=== PATIENT | female | born 1940 | race Caucasian/White ===

== ENCOUNTER → 2017-03-18 | Outpatient (CLI) | payer BC ==
[~2017-03-18] MED LIST: ASPEC81 PO; CAND32TA2 PO; DIPH25CA5 PO; EZET10TA47 PO; HYDR12.55 PO; LEVO50TA6 PO; METO-452 PO; PANT40TA PO; PRM/45 PO; PSEU30TA20 PO
--- NOTE | 2017-03-18 16:01 | MAMMOGRAPHY REPORT ---
BILATERAL DIGITAL SCREENING MAMMOGRAM WITH CAD: 03/18/2017 CLINICAL HISTORY: Asymptomatic. Personal history of breast cancer. TECHNIQUE: Bilateral CC, MLO and repeat left MLO views were obtained. Current study was also evaluat ed with a Computer Aided Detection (CAD) system. COMPARISON: Comparison is made to exams dated: 03/14/2016 mammogram, 03/09/2015 mammogram, 01/26/2014 ma mmogram, 01/20/2013 mammogram, 01/07/2013 mammogram, and 12/31/2011 mammogram - [facility]. BREAST COMPOSITION: There are scattered areas of fibroglandular density in both breasts. FINDINGS: A linear scar marker overlies the upper outer posterior left breast, denoting an area of pr ior surgery. [address]. There are mild vascular calcifications in the breast . Scattered stable benign calcifications and rodlike, probable secretory microcalcifications. No ryan spicious mass, architectural distortion or cluster of new, suspicious microcalcifications is seen. IMPRESSION: ACR BI-RADS CATEGORY 1: NEGATIVE There is no mammographic evidence of malignancy. A 1 year screening mammogram is recommended. The pa tient will receive written notification of the results. Approximately 10% of breast cancers are not detected with mammography. A negative mammographic report should not delay biopsy if a clinically suggestive mass is present. Tiarra Rios M.D. ay/:03/18/2017 15:18:39 [employer] Supervisor: Lyn POLANCO(Jose Eduardo)(Khoi)([place]), [facility] letter sent: Normal 1/2 BI-RADS Code: ACR BI-RADS Category 1: Negative
== END | disposition home or self-care (01) ==
LOC: C.MAMM 11:31
PROVIDERS: ATTEND Family Medicine
DX: Z12.31 Encounter for screening mammogram for malignant neoplasm of breast (principal); R05 Cough

== ENCOUNTER → 2017-03-18 | Outpatient (CLI) | payer BC ==
--- NOTE | 2017-03-18 10:56 | DIAGNOSTIC IMAGING REPORT ---
CHEST 2 VIEWS ROUTINE CLINICAL HISTORY: R05 COUGH COMPARISON STUDY: No previous studies for comparison. FINDINGS: The heart is at the upper limits of normal in size. There is no failure. There is no focal pulmonary consolidation. There are no pleural effusions. There is suspected mild ectasia of the a sitting thoracic aorta.[ IMPRESSION: No active disease in the chest. Electronically signed by: Milan Hatfield M.D. 03/18/2017 10:55 AM Dictated Date/Time: 03/18/2017 10:54 AM
== END | disposition home or self-care (01) ==
LOC: C.RAD1850 10:16
PROVIDERS: ATTEND Family Medicine
DX: R05 Cough (principal)

== ENCOUNTER → 2017-03-19 | Outpatient (CLI) | payer BC ==
[2017-03-25 14:19] LABS: QUANTIF TB AG-NIL 0.04 IU/ML; QUANTIFERON NIL 0.03 IU/ML
== END | disposition home or self-care (01) ==
LOC: C.LABSPEC 12:30
PROVIDERS: ATTEND Family Medicine
DX: R05 Cough (principal); R61 Generalized hyperhidrosis

== ENCOUNTER → 2017-05-06 | Outpatient (CLI) | payer BC ==
[~2017-05-06] MED LIST changes: +BND25 PO; -DIPH25CA5 PO; -METO-452 PO; +METO1TAB66 PO
== END | disposition home or self-care (01) ==
LOC: C.MAMM 11:15
PROVIDERS: ATTEND Family Medicine
DX: M81.0 Age-related osteoporosis without current pathological fracture (principal)

== ENCOUNTER → 2017-05-17 | Outpatient (CLI) | payer BC ==
--- NOTE | 2017-05-17 17:39 | DIAGNOSTIC IMAGING REPORT ---
MRI THE LEFT HIP NO CONTRAST CLINICAL HISTORY: L HIP ABDUCTORS TENDONITIS left hip pain COMPARISON STUDY: Conventional radiographic study dated 06/19/2016 FINDINGS: Imaging was performed in the axial coronal and oblique sagittal planes. There are no areas of marrow edema to indicate occult fracture, bone bruise, or neoplasm. There are tubular defects in the region of the greater trochanter the left hip, possibly related to prior surgery. There is minimal edema within the left piriformis and gluteus medius insertions consistent with a mild tendinopathy. There is no evidence of pathologic joint effusion. There is no evidence of avascular necrosis. There is no pathologic adenopathy. IMPRESSION: 1. No evidence of occult fracture 2. No evidence of avascular necrosis 3. Minimal edema within the left piriformis and gluteus medius insertions consistent with a mild tendinopathy Electronically signed by: Milan Hatfield M.D. 05/17/2017 5:38 PM Dictated Date/Time: 05/17/2017 5:26 PM
== END | disposition home or self-care (01) ==
LOC: C.MRIBC 15:44
PROVIDERS: ATTEND Physical Medicine & Rehabilitation Sports Medicine
DX: M76.892 Other specified enthesopathies of left lower limb, excluding foot (principal)

== ENCOUNTER → 2017-09-23 | Outpatient (CLI) | payer BC ==
[~2017-09-23] MED LIST changes: -BND25 PO; +DIPH25CA5 PO; +METO-452 PO; -METO1TAB66 PO
== END | disposition home or self-care (01) ==
LOC: C.RDSM 12:33
PROVIDERS: ATTEND Physical Medicine & Rehabilitation Sports Medicine
DX: M17.0 Bilateral primary osteoarthritis of knee (principal)

== ENCOUNTER → 2017-12-30 | Outpatient (CLI) | payer BC ==
[~2017-12-30] MED LIST changes: +ASPCH81X PO; +METO50TA8 PO; +RANI150T85 PO
--- NOTE | 2017-12-30 11:12 | DIAGNOSTIC IMAGING REPORT ---
L PELVIS UNILATERAL HIP 1 VIEW CLINICAL HISTORY: 77 years-old Female presenting with LEFT HIP PAIN. TECHNIQUE: Single frontal view the pelvis and frog-leg lateral view of the left hip were obtained. COMPARISON: 06/19/2016. FINDINGS: Sacroiliac joints, pubic symphysis, and hip joints congruent. Mild degenerative changes of the bilateral hip joint suggested though joint spaces preserved. This appearance is unchanged since 2016. Chondrocalcinosis at the pubic symphysis and potentially also at the left hip joint. Bony pelvis intact. Femoral necks intact. IMPRESSION: 1. Findings suggest mild degenerative change with chondrocalcinosis in the left hip joint. These findings are unchanged since prior exam. 2. No acute osseous injury. Electronically signed by: Quang Clark M.D. 12/30/2017 11:11 AM Dictated Date/Time: 12/30/2017 11:10 AM
== END | disposition home or self-care (01) ==
LOC: C.RDSM 19:19
PROVIDERS: ATTEND Physician Assistant
DX: M25.552 Pain in left hip (principal)

== ENCOUNTER → 2018-01-02 | Day surgery (SDC) | payer BC ==
[2018-01-01 13:41] VITALS: Ht 165.1 cm; Wt 75.0 kg
[~2018-01-02] VITALS: Ht 165.1 cm; Wt 75.0 kg
[~2018-01-02] MED LIST changes: -ASPEC81 PO; +BUPIVACAINE 0.25% 2.5MG/ML PF 10 ML VIAL ONE; -DIPH25CA5 PO; -EZET10TA47 PO; -HYDR12.55 PO; +IOPAMIDOL INJ 61% 15 ML VIAL ONE; +LIDOCAINE HCL 1% MPF 5 ML VIAL ONE; -METO-452 PO; -PANT40TA PO; -PSEU30TA20 PO
--- NOTE | 2018-01-02 15:11 | History & Physical Bridge - SC ---
H&P Re-Evaluation Bridge Note: I have examined the patient, reviewed the History & Physical and in the interval since the performance of the History & Physical I have noted the following changes of clinical significance: No changes noted
--- NOTE | 2018-01-02 15:27 | [facility] Post Operative Brief Note ---
Immediate Operative Summary Operative Date Jan 02, 2018. Pre-Operative Diagnosis Left sacroiliitis; underlying scoliosis Post-Operative Diagnosis same Procedure(s) Performed Left Sacroiliac Joint Injection Surgeon Dr Michael Blackwell Lesson Instructor Surgeon(s) None Estimated Blood Loss 0 Findings Consistent with Post-Op Diagnosis Specimens NA Drains None Anesthesia Type Local Complication(s) none Disposition Disposition:
--- NOTE | 2018-01-02 15:28 | Discharge Instructions ---
Discharge Instructions Date of Service Jan 02, 2018. Visit Reason for Visit: Sacroiliitis, Adolescent Idiopathic Scoliosis Discharge Discharge Diagnosis / Problem: Low back pain Discharge Goals Goal(s): Decrease discomfort, Improve function Activity Recommendations Activity Limitations: resume your previous activity Anesthesia . Post Anesthesia Instructions: If you have had General Anesthesia or IV Sedation: * Do not drive today. * Resume driving when surgeon permits. * Do not make important decisions or sign legal documents today. * Call surgeon for: 1. Temperature elevations greater than 101 degrees F. 2. Uncontrollable pain. 3. Excessive bleeding. 4. Persistent nausea and vomiting. 5. Medication intolerance (nausea, vomiting or rash). * For nausea and vomiting use only clear liquids such as: tea, soda, bouillon until nausea subsides, then gradually increase diet as tolerated. * If you have any concerns or questions, call your surgeon's office. If physician is unavailable and it is an emergency, call 911 or go to the nearest emergency room. . Diet Recommendations Recommended Home Diet: resume previous diet Procedures Procedures Performed: Left Sacroiliac Joint Injection Pending Studies Studies pending at discharge: no Medical Emergencies . Who to Call and When: Medical Emergencies: If at any time you feel your situation is an emergency, please call 911 immediately. . Non-Emergent Contact Non-Emergency issues call your: Specialist . . "Provider Documentation" section prepared by Michael Blackwell. .
[2018-01-02 15:43] VITALS: BP 154/86; PULSE 64; TEMP 36.6; O2SAT 96
--- NOTE | 2018-01-02 16:25 | OPERATIVE REPORT ---
DATE OF OPERATION: 01/02/2018 PREOPERATIVE DIAGNOSES: Left sacroiliitis and underlying scoliosis. POSTOPERATIVE DIAGNOSES: Same. PROCEDURE: Left sacroiliac joint injection under fluoroscopic guidance. INDICATIONS: The patient is a 77-year-old white female who underwent successful sacroiliac joint injections back in 2014. She has done very well until a short time ago when her pain started to increase and escalate. She presents today for injection that has been immensely successful in the past. PHYSICAL EXAMINATION: Pleasant female seated comfortably. She has point tenderness to palpation over the left SI joint. She has a positive modified Monica maneuver. Normal motor and sensory exam. CONSENT: Verbal and written consent was obtained from the patient. Risks and benefits were reviewed. Risks include, but are not limited to abscess and allergic reaction. The patient wishes to proceed. DESCRIPTION OF PROCEDURE: The patient was taken back into the special procedures room of [facility]. She was maintained in a prone position. Backside was cleansed with Betadine x3 and a dry sterile dressing was applied. Fluoroscope was used to identify the left SI joint and the overlying skin was anesthetized with 2.5 mL of lidocaine 1% with a 25-gauge 1-1/2 inch needle. A 25-gauge 3-1/2 inch spinal needle was then directed under fluoroscopic guidance into the joint. Isovue-300 contrast 0.25 mL indicated intra-articular uptake. She then underwent injection after negative aspiration of 40 mg Depo-Medrol and 0.5 mL of bupivacaine. Injection was well tolerated. DISPOSITION: 1. The patient was taken out into the discharge recovery area, where she will be discharged home once discharge criteria are met. 2. Follow up in the [facility] office in 4 weeks' time. I attest to the content of the Intraoperative Record and any orders documented therein. Any exception s are noted below.
== END | disposition home or self-care (01) ==
LOC: X.SURG 14:08
PROVIDERS: ATTEND Physical Medicine & Rehabilitation
DX: M46.1 Sacroiliitis, not elsewhere classified (principal); M41.9 Scoliosis, unspecified; Z79.82 Long term (current) use of aspirin

== ENCOUNTER → 2018-05-12 | Outpatient (CLI) | payer BC ==
[~2018-05-12] MED LIST changes: -BUPIVACAINE 0.25% 2.5MG/ML PF 10 ML VIAL ONE; +CLB/200 PO; +DIPH25CA65 PO; +HYDR12.55 PO; -IOPAMIDOL INJ 61% 15 ML VIAL ONE; -LIDOCAINE HCL 1% MPF 5 ML VIAL ONE; +PANT40TA PO
--- NOTE | 2018-05-12 12:40 | DIAGNOSTIC IMAGING REPORT ---
CHEST 2 VIEWS ROUTINE CLINICAL HISTORY: PAT preoperative evaluation COMPARISON STUDY: 03/18/2017 FINDINGS: The bones soft tissues and hemidiaphragms are normal. The cardiomediastinal silhouette is normal. The lungs are clear. The pulmonary vasculature is normal. IMPRESSION: Negative chest. The above report was generated using voice recognition software. It may contain grammatical, syntax or spelling errors. Electronically signed by: Inocencio Campos M.D. 05/12/2018 12:38 PM Dictated Date/Time: 05/12/2018 12:38 PM
[2018-05-12 12:44] LABS: BASO % 0.2 %; BASO ABS # 0.01 K/uL (0-0.2); EOS % 1.5 %; EOS ABS # 0.07 K/uL (0-0.5); HEMATOCRIT 40.8 % (37-47); HEMOGLOBIN 13.4 g/dL (12.0-16.0); IG# 0.02 K/uL (0.00-0.02); LYMPH ABS # 1.62 K/uL (1.2-3.4); MEAN CELL VOLUME 91.3 fL (80-100); MEAN CORPUSCULAR HGB CONC 32.8 g/dl (32-36); MEAN PLATELET VOLUME 9.8 fL (7.4-10.4); MONO % 6.7 %; MONO ABS # 0.31 K/uL (0.11-0.59); NEUT % 56.2 %; PLATELET COUNT 217 K/uL (130-400); RED CELL DISTRIBUTION WIDTH CV 12.7 % (11.5-14.5); RED CELL DISTRIBUTION WIDTH SD 42.5 fL (36.4-46.3); WHITE BLOOD COUNT 4.63 K/uL (4.8-10.8)
[2018-05-12 12:55] LABS: PTT PATIENT 25.7 SECONDS (21.0-31.0)
[2018-05-12 12:58] LABS: BLOOD UREA NITROGEN 14 mg/dl (7-18); CALCIUM 9.3 mg/dl (8.5-10.1); CARBON DIOXIDE 28 mmol/L (21-32); CREATININE 0.87 mg/dl (0.60-1.20); GLUCOSE 85 mg/dl (70-99); POTASSIUM 4.2 mmol/L (3.5-5.1); SODIUM 138 mmol/L (136-145)
== END | disposition home or self-care (01) ==
LOC: C.RAD 11:30
PROVIDERS: ATTEND Physical Medicine & Rehabilitation Sports Medicine
DX: Z01.818 Encounter for other preprocedural examination (principal); M17.11 Unilateral primary osteoarthritis, right knee

== ENCOUNTER → 2018-05-14 | Outpatient (CLI) | payer BC | END | disposition home or self-care (01) | LOC: C.RDSM 11:45 | PROVIDERS: ATTEND Physical Medicine & Rehabilitation Sports Medicine | DX: M25.561 Pain in right knee (principal); M25.562 Pain in left knee ==

== ENCOUNTER 2018-05-28 05:11 | Inpatient (IN) | payer BC, OTHER ==
[2018-05-05 10:10] VITALS: BMI 27.0
[2018-05-12 11:36] VITALS: BMI 27.0
--- NOTE | 2018-05-12 11:54 | PAT Medication Instructions ---
Service Date May 12, 2018. Current Home Medication List Aspirin (Aspirin Chewable), 81 MG PO QAM Candesartan Cilexetil (Atacand), 32 MG PO QAM Celecoxib (CeleBREX), 200 MG PO QPM Diphenhydramine Hcl (Benadryl Allergy), 1 CAP PO HS PRN for ALLERGY Estrogens, Conjugated (Premarin), 0.45 MG PO QAM Hydrochlorothiazide (Hydrochlorothiazide), 1 TAB PO QAM PRN for EDEMA Levothyroxine Sodium (Levothyroxine Sodium), 1 TAB PO QAM Metoprolol Succ (Toprol Xl) (Toprol-Xl), 50 MG PO QAM Pantoprazole (Protonix), 40 MG PO QAM PRN for PRN Ranitidine (Zantac), 150 MG PO QID PRN for Indigestion Medication Instructions For Your Scheduled Surgery - Hold the following medications 5 days prior to surgery per surgeon: Celecoxib (CeleBREX), 200 MG PO QPM - Hold the following medications the morning of surgery: Candesartan Cilexetil (Atacand), 32 MG PO QAM Estrogens, Conjugated (Premarin), 0.45 MG PO QAM Hydrochlorothiazide (Hydrochlorothiazide), 1 TAB PO QAM PRN for EDEMA - Take the following medications the morning of surgery with a sip of water: Aspirin (Aspirin Chewable), 81 MG PO QAM Levothyroxine Sodium (Levothyroxine Sodium), 1 TAB PO QAM Metoprolol Succ (Toprol Xl) (Toprol-Xl), 50 MG PO QAM Pantoprazole (Protonix), 40 MG PO QAM PRN for PRN (if needed) Ranitidine (Zantac), 150 MG PO QID PRN for Indigestion (if needed) - Take the following medications as scheduled the night before surgery: Diphenhydramine Hcl (Benadryl Allergy), 1 CAP PO HS PRN for ALLERGY (if needed) Hydrochlorothiazide (Hydrochlorothiazide), 1 TAB PO QAM PRN for EDEMA (if needed ) Pantoprazole (Protonix), 40 MG PO QAM PRN for PRN (if needed) Ranitidine (Zantac), 150 MG PO QID PRN for Indigestion (if needed) If you have any questions please call us at [phone] or [phone] or [phone]
--- NOTE | 2018-05-16 19:34 | HISTORY & PHYSICAL EXAMINATION ---
DATE OF ADMISSION: 05/28/2018 CHIEF COMPLAINT: Bilateral knee pain, right side greater than left. HISTORY OF PRESENT ILLNESS: This 78-year-old white female presents with her with complaints of bilateral knee pain, right greater than left, that have been ongoing for several years. Initially, her left knee hurt worst, but it is now her right. She has been through activity modification, cortisone injections, viscosupplementation, oral anti-inflammatories and oral pain medications without lasting relief. Pain is worse with weightbearing. It is affecting her ADLs. She elects to proceed with surgical intervention in hopes of alleviating her pain. Preoperative imaging has been obtained. PAST MEDICAL HISTORY: Significant for hypertension, elevated cholesterol, hypothyroidism, osteoarthritis, low back pain, GERD, hiatal hernia, and obesity. PREVIOUS SURGERIES: Basal joint reconstruction of the wrist, left knee arthroscopy x2, bilateral cataract surgery, tonsillectomy, hemorrhoidectomy, back surgery, rectocele and cystocele repair, breast lumpectomy, sinus surgery, colonoscopy, left hip arthroscopy in 12/2015. SOCIAL HISTORY: The patient is . Retired. No tobacco use. No ETOH use. ALLERGIES: KNOWN ALLERGY TO COZAAR, CRESTOR, NIFEDIPINE, NORVASC, PERCOCET, PRAVACHOL, SULFA DRUGS, ZOCOR. PERCOCET MAKES HER "LOOPY." FAMILY HISTORY: Significant for heart disease, hypertension, leukemia, and stroke. CURRENT MEDICATIONS: Aspirin 81 mg daily, candesartan 32 mg p.o. daily, Celebrex 200 mg p.o. p.r.n., Claritin 10 mg daily, fluticasone nasal spray 50 mcg two sprays in each nostril daily, hydrochlorothiazide 12.5 mg p.o. daily, indomethacin 25 mg p.o. t.i.d. p.r.n. gout, Synthroid 50 mcg p.o. daily, metoprolol 50 mg p.o. daily, Premarin 0.3 mg p.o. daily, ranitidine 150 mg p.o. t.i.d. REVIEW OF SYSTEMS: Significant for above stated conditions, otherwise unremarkable. PHYSICAL EXAMINATION: GENERAL: Well-developed, well-nourished elderly white female, in no acute distress. Sitting in a chair. Alert and oriented. SKIN: Warm and dry with good turgor. No rashes or lesions. No ecchymosis or erythema. No intraarticular effusion. Very kim. HEENT: Normocephalic, atraumatic. Eyes: PERRLA, EOMI. Nares patent bilaterally without turbinate enlargement. Oropharynx without erythema or exudate. No lesions noted. Uvula midline. Oral mucosa moist. Good dentition. Fillings are noted. HEART: RRR. No MGR. LUNGS: Clear to auscultation bilaterally. No crackles, rhonchi or wheezing. Good air movement. ABDOMEN: Bowel sounds present x4, soft, nontender. No organomegaly. No masses. MUSCULOSKELETAL: Right knee evaluation reveals no intraarticular effusion. She has a lack of approximately 3-5 degrees of terminal extension. Flexion to greater than 110 degrees. Stable collateral ligaments. Focal discomfort with palpation over the medial and lateral joint lines. No defect in the patellar tendon or quadriceps tendon. Ambulatory with a slightly antalgic gait. NEUROLOGIC: Gross sensation is intact across both lower extremities by soft touch. Cranial nerves II-XII are intact. DATA: Radiographic imaging previously obtained shows end-stage DJD of the right knee. Periarticular osteophytes, subchondral sclerosis, and joint space narrowing are all present. IMPRESSION: Right knee end-stage degenerative joint disease. PLAN: Informed written consent to proceed with right total knee arthroplasty has already been obtained. Postoperative prescriptions for Percocet and Coumadin will be provided at discharge from the hospital. Anticipate discharge to home with home health services or outpatient PT. She already has a cane and walker. She will obtain medical clearance from her PCP. Preoperative lab work, EKG, and chest x-ray have been ordered.
[2018-05-28] VITALS (9 sets, daily range): BP systolic 128–160; BP diastolic 69–95; PULSE 63–75; TEMP 36.4–36.8; O2SAT 92–97; Ht 165.1 cm; Wt 75.6 kg
[~2018-05-28] VITALS: Ht 165.1 cm; Wt 75.6 kg
[2018-05-28] MEDS ORDERED: TRANEXAMIC ACID INJ 1,000 MG x 1 Bag Preop IV SCH ×2 (06:00)
[2018-05-28] MEDS ORDERED: LACTATED RINGER'S 1000ML 1,000 ML IV SCH (06:00)
[2018-05-28] MEDS ORDERED: CEFAZOLIN 2000MG IV PUSH 15 ML IV SCH (06:00)
[2018-05-28] MEDS ORDERED: LACTATED RINGER'S 1000ML 500 ML IV SCH (06:00)
[2018-05-28] MEDS ORDERED: ROPIVACAINE 5MG/ML 30 ML 150 MG, BUPIVACAINE 0.5% MPF INJ 30 ML, EpINEphrine HCL INJ 0.... INFIL SCH ×8 (06:00)
[2018-05-28] MEDS ORDERED: LACTATED RINGER'S 1000ML IV SCH (06:00)
--- NOTE | 2018-05-28 06:22 | History & Physical Bridge Note ---
H&P Re-Evaluation Bridge Note: I have examined the patient, reviewed the History & Physical and in the interval since the performance of the History & Physical I have noted the following changes of clinical significance:consent reviewed. No changes noted
[2018-05-28] MEDS ORDERED: BUPIVACAINE 0.5 % 5 MG/1 ML PF 10ML VIAL ONE (06:26)
[2018-05-28] MEDS ORDERED: ROPIVACAINE 0.5% 5 MG/ML 30 ML VIAL ONE (06:26)
[2018-05-28] MEDS ORDERED: EpINEphrine INJ 1MG/ML AMP 1 MG/ML AMP ONE (06:27)
[2018-05-28] MEDS ORDERED: ORTHO JOINT ANESTHETIC ONE (06:34)
[2018-05-28] MEDS ORDERED: POVIDONE-IODINE OP SOLN 30 ML BTL ONE (06:34)
[2018-05-28] MEDS ORDERED: MIDAZOLAM HCL 1 MG/ML 2ML VIAL ONE (06:46)
[2018-05-28] MEDS ORDERED: FENTANYL CITRATE INJ 50 MCG/1 ML 2 ML VIAL ONE (07:03)
[2018-05-28] MEDS ORDERED: ONDANSETRON INJ 2 MG/ML 2 ML VIAL ONE (07:42)
[2018-05-28] MEDS ORDERED: DEXAMETHASONE SOD INJ 4 MG/ML VIAL ONE (07:42)
[2018-05-28] MEDS ORDERED: EpHEDrine SULFATE 50MG/5ML SYR ONE (07:42)
[2018-05-28] MEDS ORDERED: PROPOFOL IV EMULSION 10 MG/ML 20 ML VIAL ONE (07:42)
--- NOTE | 2018-05-28 08:14 | [facility] Post Operative Brief Note ---
Immediate Operative Summary Operative Date May 28, 2018. Pre-Operative Diagnosis Right Knee End-Stage Degenerative Joint Disease Post-Operative Diagnosis Right Knee End-Stage Degenerative Joint Disease Procedure(s) Performed Right Total Knee Arthroplasty Surgeon Dr. Wong Eeg Technologist Surgeon(s) HILLARY Luna Estimated Blood Loss 25 ml Findings Consistent with Post-Op Diagnosis Fluids (cc crystalloids) 1500cc Specimens A. Right Knee Bone and Tissue Drains None Anesthesia Type General Regional Complication(s) none Disposition Accompanied Pt To Recover: no Overlapping Procedure I was immediately available: during the entire case
[2018-05-28] MEDS ORDERED: FENTANYL CITRATE INJ 50 MCG/1 ML 2 ML VIAL IV PRN (08:15)
[2018-05-28] MEDS ORDERED: MEPERIDINE HCL 25 MG/ML CARP IV PRN (08:15)
[2018-05-28] MEDS ORDERED: PHENYLEPHRINE 100MCG/ML 5ML SYR IV PRN (08:15)
[2018-05-28] MEDS ORDERED: ONDANSETRON INJ 2 MG/ML 2 ML VIAL IV PRN ×2 (08:15→08:30)
[2018-05-28] MEDS ORDERED: FLUMAZENIL 0.1 MG/1 ML 10 ML VIAL IV PRN (08:15)
[2018-05-28] MEDS ORDERED: EpHEDrine SULFATE INJ 50 MG/ML AMP IV PRN (08:15)
[2018-05-28] MEDS ORDERED: LABETALOL HCL IV 5 MG/ML 20ML IV PRN (08:15)
[2018-05-28] MEDS ORDERED: NALOXONE HCL 0.4 MG/1 ML VIAL/CARP IV PRN (08:15)
[2018-05-28] MEDS ORDERED: HYDROmorphone INJ 2 MG/ML SYR/VIAL IV PRN (08:15)
[2018-05-28] MEDS ORDERED: ATROPINE SULFATE 0.1 MG/ML 5ML SYR IV PRN (08:15)
[2018-05-28] MEDS ORDERED: METOCLOPRAMIDE HCL INJ 5 MG/ML 2 ML VIAL IV PRN (08:30)
[2018-05-28] MEDS ORDERED: MoRPHine SULFATE 2 MG/ML CARP IV PRN (08:30)
[2018-05-28] MEDS ORDERED: HYDROCHLOROTHIAZIDE 25 MG TAB PO PRN (08:30)
[2018-05-28] MEDS ORDERED: ALUMINUM/MAGNESIUM/SIMETH (MAALOX MAX) 30 ML UDC PO PRN (08:30)
[2018-05-28] MEDS ORDERED: ACETAMINOPHEN 325 MG TAB PO PRN (08:30)
[2018-05-28] MEDS ORDERED: MAGNESIUM HYDROXIDE SUSP 30 ML UDC PO PRN (08:30)
[2018-05-28] MEDS ORDERED: DiphenhydrAMINE HCL 50 MG/ML VIAL IV PRN (08:30)
[2018-05-28] MEDS ORDERED: OXYCODONE HCL IR 5 MG TAB (IMMEDIATE RELEASE) PO PRN (08:30)
[2018-05-28] MEDS ORDERED: BISACODYL 10 MG SUPP PR PRN (08:30)
--- NOTE | 2018-05-28 08:32 | OPERATIVE REPORT ---
DATE OF OPERATION: 05/28/2018 SURGEON: Judith Olivares MD SECURITY PATROL DRIVER: Reinaldo Hughes PA-C. No resident or fellow available. PREOPERATIVE DIAGNOSIS: Osteoarthritis with valgus deformity and flexion contracture, right knee. POSTOPERATIVE DIAGNOSIS: Osteoarthritis with valgus deformity and flexion contracture, right knee. OPERATION PERFORMED: Cemented right total knee replacement. PERIOPERATIVE SITUATION: Medically cleared female with intractable knee pain bilaterally, right and left. She elects to do the right knee first. Consent obtained. All risks and benefits described. She understands these risks. SUMMARY OF IMPLANTS: Size 3 right posterior cruciate substituting femur, size 3 right tibial tray, oval dome 3 peg patella size 38 and insert platform 3 x 12.5 posterior cruciate substituting. Two bags of Palacos G cement. ESTIMATED BLOOD LOSS: 25 mL. CRYSTALLOID: 1500 mL. DVT PROPHYLAXIS: With Coumadin. DESCRIPTION OF PROCEDURE: The patient was appropriately identified, site verified, consent verified. Ancef confirmed as being given and TXA confirmed as being given. The right lower extremity was prepped and draped in usual routine fashion. Timeout performed. Site verified. A tourniquet inflated to 300 mmHg after exsanguination of limb with a rubber Esmarch bandage for a total of about 43 minutes. Midline exposure utilized. Parapatellar arthrotomy performed. Synovectomy completed, soft tissue releases completed, osteophytes resected. Distal femur entered, resected 14 mm, proximal tibia resected 4 mm, extension gap was excellent. The femur was sized anywhere between a 2-1/2 and a 4 that was elected to go with a 3. This created some slight anterior notching, but was acceptable and was appropriate not to overstuff the knee or make the knee flexion gap too small. The flexion gap was then assessed and it was excellent. The box cut was then made and the size 3 fit well. The tibia was broached and reamed to a size 3 and a spacer was 10 and 12.5. 12.5 was best. The flexion stability was excellent and extension was to 0. The patella was then sized to a 38 and resected leaving 15 mm. Seating holes made and the trial fit and tracked well. The knee was then injected with the Orthomix. All trial implants were removed. The wound irrigated with Betadine Pulsavac and then the permanent cemented into position. After 12 minutes, the tourniquet deflated. After additional 2 minutes, the knee flexed. No major cement removal was required. There was no bleeding encountered. The wound was irrigated with Betadine Pulsavac, the permanent liner seated. The knee reduced and then the knee closed in flexion with interrupted #2 Vicryl sutures for the arthrotomy, 2-0 Vicryl for the subcutaneous layer and stainless steel clips for skin. Appropriate dressing applied. The patient transferred to recovery room in satisfactory condition having tolerated the procedure well. I attest to the content of the Intraoperative Record and any orders documented therein. Any exception s are noted below.
--- NOTE | 2018-05-28 08:44 | DIAGNOSTIC IMAGING REPORT ---
RIGHT KNEE 2 VIEWS History: Right total knee arthroplasty. Degenerative arthritis. Postop. FINDINGS: The patient is status post a right total knee arthroplasty. The hardware is intact. No fracture or dislocation. Skin cindy and surgical drains are in place. IMPRESSION: Right total knee arthroplasty. No evidence for hardware complication. Electronically signed by: Cuate Freeman M.D. 05/28/2018 8:43 AM Dictated Date/Time: 05/28/2018 8:42 AM
[2018-05-28] MEDS ORDERED: ACETAMINOPHEN IV 100 ML IV PRN (08:45)
--- NOTE | 2018-05-28 09:17 | Anesthesiology Progress Note ---
Anesthesia Post Op Note Date & Time May 28, 2018 at 09:17 Vital Signs Pain Intensity: 0 Vital Signs Past 12 Hours Date Time Temp Pulse Resp B/P (MAP) Pulse Ox O2 Delivery O2 Flow Rate FiO2 05/28/18 09:05 36.9 05/28/18 09:00 36.9 68 16 135/72 94 Nasal Cannula 2 05/28/18 08:50 78 16 135/80 94 Nasal Cannula 2 05/28/18 08:40 69 16 133/83 99 Oxymask 10 05/28/18 08:30 69 16 136/79 99 Oxymask 10 05/28/18 08:22 36.7 76 16 143/79 98 Oxymask 10 05/28/18 05:31 36.7 71 20 157/95 94 Room Air Notes Mental Status: alert / awake / arousable, participated in evaluation Pt Amnestic to Procedure: Yes Nausea / Vomiting: adequately controlled Pain: adequately controlled Airway Patency, RR, SpO2: stable & adequate BP & HR: stable & adequate Hydration State: stable & adequate Neuraxial Anesthesia: was administered, sensory block is resolving Anesthetic Complications: no major complications apparent
[2018-05-28] MEDS ORDERED: D5W AND 1/2NSS + 20MEQ KCL 1,000 ML IV SCH (10:00)
[2018-05-28] MEDS: DOCUSATE SODIUM 100 MG CAP PO SCH ×2 (10:42→21:57)
[2018-05-28] MEDS: PANTOprazole SOD 40 MG TAB PO SCH (10:42)
[2018-05-28] MEDS ORDERED: METOPROLOL SUCC 50MG EXT REL TAB PO ONE (11:00)
--- NOTE | 2018-05-28 11:21 | Progress Note ---
Progress Note Date of Service May 28, 2018. Progress Note Postop check status post right total knee replacement. Patient is sitting up in bed. Still has some incomplete spinal block on the nonoperative lower extremity has some quad weakness otherwise is within normal limits both lower extremities. She denies chest pain shortness breath fever chills nausea vomiting or headache. Vital signs are stable she is afebrile. Right leg reveals intact dressing clean and dry for quadrant and hamstring function intact femoral sciatic nerve all normal on the right is weak femoral nerve on the left likely based on the incomplete spinal. She required a general anesthesia for the procedure. Stop x-rays look excellent. Assessment doing well status post right total knee replacement mobilize with spinal wears off Hep-Lock IV if tolerates lunch hospital for potential needs. Dictated not read.
[2018-05-28] MEDS: FERROUS GLUCONATE 324 MG TAB PO SCH ×2 (12:40→17:53)
[2018-05-28] MEDS ORDERED: NURSING DECISION MEDICATION ORDER SCH (14:00)
[2018-05-28] MEDS: KETOROLAC TROMETHAMINE 15 MG/ML VIAL IV. SCH ×2 (14:03→20:11)
[2018-05-28] MEDS: CEFAZOLIN IV 2,000 MG in SYRINGE 0 ML IV SCH ×2 (14:03→21:55)
[2018-05-28] MEDS ORDERED: TRANEXAMIC ACID INJ 1,000 MG in SODIUM CHLORIDE 0.9% 100ML 100 ML IV SCH (15:00)
[2018-05-28] MEDS ORDERED: WARFARIN SOD 5 MG TAB PO ONE (16:00)
[2018-05-28] MEDS ORDERED: WARF2TAB PO (16:31)
--- NOTE | 2018-05-28 17:44 | Progress Note ---
Progress Note Date of Service May 28, 2018. Progress Note Afternoon rounds check. Patient is doing well eating dinner no nausea vomiting IV is hep-locked continue with present care plan discharge tomorrow Reinaldo Hughes will discharge in my absence I will be at [place]. Dictated not read
[2018-05-28] MEDS ORDERED: NURSING VERBAL MED ORDER ONE (20:15)
[2018-05-29] MEDS: KETOROLAC TROMETHAMINE 15 MG/ML VIAL IV. SCH ×2 (02:21→08:17)
[2018-05-29 03:55] VITALS: BP 131/76; PULSE 66; TEMP 36.6; O2SAT 95
[2018-05-29] MEDS ORDERED: LEVOTHYROXINE 50 MCG TAB PO SCH (06:00)
[2018-05-29 07:11] VITALS: BP 129/69; PULSE 70; TEMP 36.7; O2SAT 95
[2018-05-29] MEDS ORDERED: DEXAMETHASONE INJ 10 MG in SYRINGE 0 ML IV ONE (07:30)
[2018-05-29 07:32] LABS: HEMATOCRIT 31.4 % (37-47); HEMOGLOBIN 10.4 g/dL (12.0-16.0); MEAN CELL VOLUME 89.2 fL (80-100); MEAN CORPUSCULAR HEMOGLOBIN 29.5 pg (25-34); MEAN CORPUSCULAR HGB CONC 33.1 g/dl (32-36); MEAN PLATELET VOLUME 9.7 fL (7.4-10.4); PLATELET COUNT 191 K/uL (130-400); RED CELL DISTRIBUTION WIDTH CV 12.4 % (11.5-14.5); RED CELL DISTRIBUTION WIDTH SD 39.9 fL (36.4-46.3); WHITE BLOOD COUNT 9.71 K/uL (4.8-10.8)
[2018-05-29 08:08] LABS: CALCIUM 8.2 mg/dl (8.5-10.1); CREATININE 1.15 mg/dl (0.60-1.20); POTASSIUM 4.2 mmol/L (3.5-5.1)
[2018-05-29] MEDS: FERROUS GLUCONATE 324 MG TAB PO SCH ×2 (08:25→12:30)
[2018-05-29] MEDS ORDERED: MULTIVITAMIN TAB PO SCH (09:00)
[2018-05-29] MEDS ORDERED: ASPIRIN 81 MG ECTAB PO SCH (09:00)
[2018-05-29] MEDS ORDERED: METOPROLOL SUCC 50MG EXT REL TAB PO SCH (09:00)
[2018-05-29] MEDS: DOCUSATE SODIUM 100 MG CAP PO SCH (09:05)
[2018-05-29] MEDS: PANTOprazole SOD 40 MG TAB PO SCH (09:06)
[2018-05-29] MEDS ORDERED: OXYC-57 PO (09:24)
--- NOTE | 2018-05-29 09:25 | Discharge Instructions ---
Discharge Instructions Date of Service May 28, 2018. Admission Reason for Admission: Right Knee Degenerative Joint Disease Discharge Discharge Diagnosis / Problem: Right knee s/p total knee replacement Discharge Goals Goal(s): Decrease discomfort, Improve function, Increase independence Activity Recommendations Activity Limitations: as noted below Lifting Limitations: gradually increase as tolerated Exercise/Sports Limitations: until after follow-up appointment Shower/Bathe: keep incision dry Driving or Machine Use: No driving until cleared by Dr. Wong Weightbearing Status: Right weightbearing (as tolerated) . Instructions / Follow-Up Instructions / Follow-Up New Medicine: * You will likely be taking one or more of these medications: 1. Percocet - Take, as directed, when you need it, every four to six hours to control your pain. 2. Coumadin - Thins your blood to lessen the chance of forming a blood clot. The dose of this is different for each person and is based on your blood tests that are done twice a week. * The most common side effects of pain medicine and iron are nausea and constipation. If nausea or constipation is too much of a problem or if you have any questions about your new medicines or doses, call [facility] at . We will try to help you manage these issues. VERY IMPORTANT TO READ AND REVIEW" Blood Clots and Blood Thinning Medicine: * You are given Coumadin during the immediate post-operative period to lessen the risk of blood clots forming in your legs and/or lungs. Coumadin is usually given for six weeks after surgery. * The prescription is for 2 mg tablets. At discharge, you should understand your dose and take it all at the same time every day, preferably after dinner. * You need to get your blood checked 1 - 2 times per week for six weeks or as directed. * If your dose needs to change, we will call you. Do not take your medication on the day of the blood test until we call you. Pain: * The immediate post-operative period after knee replacement surgery is often quite painful. * You are given a prescription for pain medicine. You should take it, as directed, when you need it, especially before physical therapy and before going to bed. Pain that interferes with sleep is very common and can last several months. * You will likely need pain medicine for the first four to six weeks. It will not stop all of the pain. The pain will lessen and as you feel better, you may change to milder pain medicine such as Tylenol. * The most common side effects of pain medicine are nausea and constipation, so don't take more than you need. Physical Therapy: * You will have physical therapy two or three times each week for four to six weeks after your surgery in order to regain your knee range of motion and to retrain your knee to work properly. * It is just as important to make sure you are getting your knee perfectly straight as it is to regain your knee bend. * Taking a pain pill an hour before therapy can help you have a more productive and comfortable therapy session if needed. Home Exercise: * You were shown a series of exercises (heel props, heel slides, etc.) in the hospital. Do these exercises three to four times each day including the exercises you were shown in physical therapy. Walking: * Get up and walk several times each day. For the first four weeks, try not to stand or walk for more than one hour at a time. If you do stand or walk for more than one hour, you will not hurt anything, but your knee and leg will likely swell. * As you feel comfortable, you may change from the walker or crutches to a cane and then to independent walking. SELF CARE INSTRUCTIONS AFTER TOTAL KNEE REPLACEMENT A. You may need to continue a physical therapy program after discharge from the hospital. There are several options available to you. Your doctor will assist you in selecting the best one for you. 1. An out-patient facility 2 to 3 times a week for therapy or home therapy. 2. Continue working on all exercises taught to you in the hospital. Your goals should be to increase bending of your knee to 90 degrees and beyond and to fully straighten your knee. B. You may progress at your own pace from walking with a walker or crutches to a cane; then to no assistive devices. C. Make walking a part of your daily routine. Be up as much as comfortable with rest periods throughout the day. Rest with leg elevation is very important. Use the ice wrap frequently for the first 3-4 weeks. D. There are no restrictions on activities. You may ride in a car, shop, participate in new media strategist and all social activities. E. Wear the long elastic stockings (TIM hose) 20 hours a day for six weeks after surgery. They can be removed several times a day for laundering and for a shower. F. Do not place a pillow behind your knee when resting. A pillow at your ankle is okay. VERY IMPORTANT TO READ AND REVIEW A. Take Coumadin, Aspirin or Lovenox (blood thinning medications) as directed by your doctor. If on Coumadin, have a pro-time (blood test) drawn according to your doctor's instructions. This will tell the doctor how well the Coumadin is thinning your blood. 1. YOU WILL BE GIVEN AN ORDER AT DISCHARGE FOR PT/INR (BLOOD WORK). PLEASE HAVE THIS DONE INSTRUCTED. PLEASE CALL OUR OFFICE AFTER YOUR BLOODWORK IS COMPLETE SO WE CAN TRACK YOUR RESULTS. IF YOU ARE GOING TO OUTPATIENT PHYSICAL THERAPY, YOU WILL NEED TO GO TO OUTPATIENT TESTING TO HAVE IT DRAWN. B. There are a few signs you need to watch for after you are home. Call [facility] if you notice any of the followin. Increased severe knee pain. Some pain is expected especially when you exercise. 2. Increased swelling in your leg or knee; pain or swelling of the calf muscle in either lower leg. 3. Any fluid drainage from the incision. 4. Shortness of breath or chest pain. C. Please call [facility] at if you have any concerns or questions about your operation or recovery. The doctor or his nurse will return your call promptly. D. You must take antibiotics before dental work, bladder, bowel or other surgery. Call the office to obtain a prescription at least 2 days prior to your appointment. * CALL IF INCREASED PAIN, REDNESS, DRAINAGE OR FEVER GREATER THAT 101. * Sutures should be removed 12-14 days after surgery unless you are on chronic steriods, then it will be 14-18 days after surgery. Call your doctor if: * Temperature above 101 degrees F. * Pain not relieved by pain medicine ordered. * Increased drainage or redness from incision. * Notify your doctor with any questions or concerns. Current Hospital Diet Patient's current hospital diet: AHA Diet (Heart Healthy) Discharge Diet Recommended Diet: AHA Diet (Heart Healthy) Procedures Procedures Performed: Right Total Knee Arthroplasty Pending Studies Studies pending at discharge: no Medical Emergencies . Who to Call and When: Medical Emergencies: If at any time you feel your situation is an emergency, please call [phone] immediately. . Non-Emergent Contact Non-Emergency issues call your: Primary Care Provider, Surgeon Call Non-Emergent contact if: temperature is above 101, wound has increased drainage, wound has increased redness, wound has increased pain, you have any medication questions . "Provider Documentation" section prepared by Reinaldo Hughes PA-C. . [place] Drug Monitoring Program Search Results: no issues identified
--- NOTE | 2018-05-29 09:32 | Orthopedic Progress Note ---
Orthopedic Progress Note Date of Service May 29, 2018. Subjective Post OP Day: 1 Reports: feeling well, pain controlled w PO medications, Denies: complaints, chest pain, SOB, nausea / vomiting, light headedness, calf pain Additional Notes: Did not sleep well. Estimates only 2 hours. Pain is controlled at this time Objective calves soft nontender, N/V intact, capillary refill less than 2 sec., dressing C /D/I, incision C/D/I, A&O x3, toes mobile, CMS intact Expected post op edema. No active drainage. Intact SLR and ankle/toe function. Date Time Temp Pulse Resp B/P (MAP) Pulse Ox O2 Delivery O2 Flow Rate FiO2 05/29/18 07:20 Room Air 05/29/18 07:11 36.7 70 19 129/69 (89) 95 Room Air 05/29/18 03:55 36.6 66 16 131/76 (94) 95 Room Air 05/29/18 00:30 Room Air 05/28/18 23:01 36.6 70 16 129/75 (93) 92 Room Air 05/28/18 19:16 36.4 74 16 128/74 (92) 95 Room Air 05/28/18 15:10 Room Air 05/28/18 15:08 36.4 68 17 142/77 (98) 93 Room Air 05/28/18 12:27 36.5 73 19 160/88 (112) 97 Room Air 05/28/18 11:20 75 19 128/75 (92) 97 Nasal Cannula 2.0 05/28/18 10:29 36.8 69 19 135/69 (91) 96 Nasal Cannula 2.0 05/28/18 09:50 63 18 138/77 (97) 94 Room Air Laboratory Results 24 Hours: Test 05/29/18 07:17 Hematocrit 31.4 % Hemoglobin 10.4 g/dL Prothromb Time International Ratio 1.0 Prothrombin Time 11.0 SECONDS Assessment & Plan Assessment: Right knee post op day 1 total knee arthroplasty Plan: PT/OT today anticipate D/C to home today with home health dressing changed by me. TIM applied continue coumadin per nomogram WBAT with walker follow up in the office in 2 weeks for staple removal Discharge Planning Discharge Planning: home with home health Pain Management: Percocet DVT Prophylaxis: TEDs, SCDs, Coumadin Therapy: Physical Therapy, Occupational Therapy
--- NOTE | 2018-05-29 10:05 | Anesthesiology Progress Note ---
Anesthesia Post Op Note Date & Time May 29, 2018 at 10:05 Vital Signs Pain Intensity: 0.0 Vital Signs Past 12 Hours Date Time Temp Pulse Resp B/P (MAP) Pulse Ox O2 Delivery O2 Flow Rate FiO2 05/29/18 07:20 Room Air 05/29/18 07:11 36.7 70 19 129/69 (89) 95 Room Air 05/29/18 03:55 36.6 66 16 131/76 (94) 95 Room Air 05/29/18 00:30 Room Air 05/28/18 23:01 36.6 70 16 129/75 (93) 92 Room Air Notes Mental Status: alert / awake / arousable, participated in evaluation Pt Amnestic to Procedure: Yes Nausea / Vomiting: adequately controlled Pain: adequately controlled Airway Patency, RR, SpO2: stable & adequate BP & HR: stable & adequate Hydration State: stable & adequate Anesthetic Complications: no major complications apparent
[2018-05-29 12:08] VITALS: BP 129/69; PULSE 70; TEMP 36.7; O2SAT 95
--- NOTE | 2018-05-29 22:20 | DISCHARGE SUMMARY ---
ATTENDING PHYSICIAN: Dr. Wong. CONSULTING PHYSICIANS: None. CONDITION ON DISCHARGE: Stable. ADMITTING DIAGNOSIS: Right knee end-stage degenerative joint disease. PROCEDURE: Right knee total knee arthroplasty. HISTORY OF PRESENT ILLNESS: This 78-year-old white female who had presented to the office with complaints of bilateral knee pain, right greater than left, that have been ongoing for several years. Pain is affecting her ADLs. It is worse with weightbearing and ambulation. She had tried conservative care measures without improvement. She elected to proceed with surgical intervention in hopes of alleviating her pain. PAST MEDICAL HISTORY: Significant for hypertension, elevated cholesterol, hypothyroidism, osteoarthritis, low back pain, GERD, hiatal hernia, and obesity. PAST SURGICAL HISTORY: Basal joint reconstruction of the thumb, left knee arthroscopy x2, bilateral cataract surgery, tonsillectomy, hemorrhoidectomy, back surgery, rectocele and cystocele repair, breast lumpectomy, sinus surgery, colonoscopy, left hip arthroscopy in 12/2015. SOCIAL HISTORY: The patient is . Retired. No tobacco use. No ETOH use. ALLERGIES: KNOWN ALLERGY TO COZAAR, CRESTOR, NIFEDIPINE, NORVASC, PERCOCET, PRAVACHOL, SULFA DRUGS, AND ZOCOR. FAMILY HISTORY: Significant for heart disease, hypertension, leukemia, and stroke. HOSPITAL COURSE: The patient was admitted through same day surgery on 05/28/2018. She underwent successful right total knee arthroplasty without complication. She was taken to the recovery room in satisfactory condition. She was transferred to the floor and did well the rest of the evening. She has no complaints or complications. She states she did not sleep very much secondary to interruptions. She was able to ambulate to the bathroom several times with assistance. Vitals remained stable. She was reevaluated on the morning of 05/29/2018 and was again found to be doing well. She was able to perform straight leg raise. Dressings were changed. Wound has expected postoperative edema, but otherwise looks very good. Neurovascular status to lower extremities is intact and unremarkable. She did participate in PT and OT and was deemed well with her discharge. She will be sent home with home health services. Pain is controlled adequately with oral pain meds. DISCHARGE MEDICATIONS: Percocet 5/325 mg 1-2 tablets every 4 hours as needed, Coumadin 4 mg p.o. daily, aspirin 81 mg p.o. q.a.m., Atacand 32 mg p.o. q.a.m., Benadryl 25 mg p.o. at bedtime p.r.n., HCTZ 12.5 mg p.o. q.a.m. p.r.n., Synthroid 50 mcg p.o. q.a.m., metoprolol XL 50 mg p.o. q.a.m., Protonix 40 mg p.o. q.a.m., ranitidine 150 mg p.o. q.i.d. p.r.n. indigestion. She will hold her Celebrex and Premarin. DISCHARGE INSTRUCTIONS: The patient's dressings were changed today. Wound looks good. They will remain in place until Saturday when they may be redressed by home nursing. She will have her INR drawn on Saturday and we will adjust her Coumadin level from there. Keep the wound clean and dry. Continue with her home exercise program. Walk frequently using her walker for stability and support. Continue with ice and elevation frequently to reduce edema. Additional written discharge instructions were provided. Follow up in the office in 2 weeks for staple removal.
== END 2018-05-29 13:30 | disposition home health service (06) | DRG 470 ==
LOC: C.ACU 05:11 → C.3E 06:30 → ENRESERV 08:38
PROVIDERS: ADMIT Physical Medicine & Rehabilitation Sports Medicine; ATTEND Physical Medicine & Rehabilitation Sports Medicine
PROC: 0SRC0J9 Replacement of Right Knee Joint with Synthetic Substitute, Cemented, Open Approach (ICD-10-PCS; principal; 2018-05-28 07:00)
DX: M17.11 Unilateral primary osteoarthritis, right knee (principal); I10 Essential (primary) hypertension; E78.00 Pure hypercholesterolemia, unspecified; E03.9 Hypothyroidism, unspecified; K21.9 Gastro-esophageal reflux disease without esophagitis; E66.9 Obesity, unspecified; Z79.899 Other long term (current) drug therapy; Z79.82 Long term (current) use of aspirin

== ENCOUNTER 2022-04-13 09:35 | Observation (INO) ==
--- NOTE | 2022-03-12 21:14 | PAT Medication Instructions ---
Medication Instructions Date of Service March 12, 2022 Home Medications Medication Instructions Recorded mometasone 50 mcg/actuation nasal 2 spray INTRANASAL DAILY PRN #17 g 01/10/22 spray aspirin 81 mg tablet,delayed release (Aspir-Low) 81 mg PO HS candesartan 32 mg tablet (Atacand) 32 mg PO HS levothyroxine 50 mcg tablet (Synthroid) 50 mcg PO QAM metoprolol succinate 50 mg tablet,extended release 24 hr 150 mg PO HS celecoxib 200 mg capsule (Celebrex) 200 mg PO DAILY PRN pantoprazole 40 mg tablet,delayed release 40 mg PO BID PRN rosuvastatin 20 mg tablet (Crestor) 20 mg PO Q3D mometasone 50 mcg/actuation nasal spray 2 spray INTRANASAL DAILY PRN amlodipine 10 mg tablet 10 mg PO HS estradiol 1 mg tablet 1 mg PO HS Continue as directed rosuvastatin 20 mg tablet (Crestor) 20 mg PO Q3D ASK your surgeon for instructions celecoxib 200 mg capsule (Celebrex) 200 mg PO DAILY PRN ASK your prescriber and surgeon estradiol 1 mg tablet 1 mg PO HS Take morning of surgery With a small sip of water, OTHERWISE NOTHING TO EAT OR DRINK AFTER MIDNIGHT: levothyroxine 50 mcg tablet (Synthroid) 50 mcg PO QAM pantoprazole 40 mg tablet,delayed release 40 mg PO BID PRN (if needed) mometasone 50 mcg/actuation nasal spray 2 spray INTRANASAL DAILY PRN (if needed) Take evening before surgery aspirin 81 mg tablet,delayed release (Aspir-Low) 81 mg PO HS (continue as normal unless told otherwise by surgeon) candesartan 32 mg tablet (Atacand) 32 mg PO HS metoprolol succinate 50 mg tablet,extended release 24 hr 150 mg PO HS pantoprazole 40 mg tablet,delayed release 40 mg PO BID PRN (if needed) mometasone 50 mcg/actuation nasal spray 2 spray INTRANASAL DAILY PRN (if needed) amlodipine 10 mg tablet 10 mg PO HS Other Notes If you have any questions please call us at [phone] or [phone] or [phone] or [phone]
--- NOTE | 2022-03-14 10:35 | Anesthesiology Consultation ---
Date of Service March 14, 2022 Assessment & Plan (1) Encounter for pre-operative examination: Chart Review Chart Review: Acceptable Risk for Surgery (pending preop Covid testing results ) and Patient seen in Pre Admission Testing Per PAT appt on 03/14/22, patient denies any recent travel or large group activities. No known Covid positive exposures or Covid related symptoms. No known Covid infection in the past 90 days. Pt is vaccinated for Covid. Preop Covid testing scheduled 04/11/22= will await results. Educated on importance of self quarantining, social distancing and wearing mask in public for the patient one week prior to surgery and after Covid testing done Teaching & Discussion Pre-Anesthesia Teaching/Discussion Notes: Instructed NPO after midnight before surgery,except medications with 15 cc of water. Medication instructions provided according to the [facility] guidelines. History Surgery Operation Date: 04/13/22 10:40 Proposed Procedures p Left Total Knee Arthroplasty - Marcellus Medina, Height/Weight Height: 5 ft 4.5 in Weight: 77.1 kg Allergies Allergy/AdvReac Type Severity Reaction Status Date / Time grass pollen Allergy Intermediate Sneezing Verified 03/08/22 16:51 house dust mite Allergy Intermediate Sneezing Verified 03/08/22 16:51 mold Allergy Intermediate Congested Verified 03/08/22 16:51 losartan AdvReac Intermediate lost voice Verified 03/08/22 16:51 oxycodone AdvReac Intermediate "LOOPY" Verified 03/08/22 16:51 [id number] Reductase AdvReac Intermediate Muscle Pain Verified 03/13/22 10:11 Inhibitor [Ayxjycx-Djs-Zyn Reductase Inhibitor] Sulfa (Sulfonamide AdvReac Intermediate STOMACH Verified 03/13/22 10:11 Antibiotics) UPSET ragweed pollen AdvReac Mild Congested Verified 03/13/22 10:11 warfarin [From Coumadin] AdvReac Mild UPSET Verified 03/13/22 10:11 STOMACH Medications Home Medications Medication Instructions Recorded Confirmed Last Taken aspirin 81 mg tablet,delayed 81 mg PO HS 01/02/19 03/08/22 02/22/22 release (Aspir-Low) candesartan 32 mg tablet (Atacand) 32 mg PO HS 01/02/19 03/08/22 02/25/22 levothyroxine 50 mcg tablet 50 mcg PO QAM 01/02/19 03/08/22 02/26/22 (Synthroid) metoprolol succinate 50 mg 150 mg PO HS 01/02/19 03/08/22 02/25/22 tablet,extended release 24 hr celecoxib 200 mg capsule (Celebrex) 200 mg PO DAILY PRN 08/31/20 03/08/22 02/25/22 pantoprazole 40 mg tablet,delayed 40 mg PO BID PRN tab 08/31/20 03/08/22 02/25/22 release rosuvastatin 20 mg tablet (Crestor) 20 mg PO Q3D 08/31/20 03/08/22 02/25/22 mometasone 50 mcg/actuation nasal 2 spray INTRANASAL DAILY PRN #17 g 01/10/22 03/08/22 02/25/22 spray amlodipine 10 mg tablet 10 mg PO HS 02/21/22 03/08/22 02/25/22 estradiol 0.5 mg tablet 0.5 mg PO QPM 03/14/22 03/14/22 Unknown Past Medical History Medical History Back pain Chronic back pain- DDD - lumbar area Chronic otitis media Does have decreased hearing in right ear due to previous infections No current issues Chronic sinusitis Stable - takes OTC allergy medication Degenerative disc disease Lumbar area; SI joint pain; hx of mild scoliosis GERD (gastroesophageal reflux disease) Well controlled and stable with Protonix Hyperlipidemia Hypertension Hypothyroidism Spinal stenosis 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 > no issues with other than not being able to sing per pt Exercise / Class Metabolic Activity II 4-5 Yardwork/Stairs/Walk up hill (one flight of stairs - no chest pain or SOB ) Past Family History Family History Grandmother (Maternal) Family history of diabetes mellitus Son Hearing loss Brother Cancer Father Heart disease Grandmother Asthma Other Leukemia No family history of adverse response to anesthesia No family history of allergies No family history of bleeding disorder Denies family history of Hypertension Stroke Past Surgical History Surgical History H/O lumpectomy left breast History of cataract surgery RT/LEFT History of colonoscopy History of dilatation and curettage History of endoscopic sinus surgery History of esophagogastroduodenoscopy (EGD) History of hip surgery LEFT HIP SURGERY (SPUR REMOVED/TENDON REPAIR) History of hysterectomy History of laminectomy LUMBAR History of myringotomy Multiple ESS, balloon Eustachian tube, left myringotomy (09/18/19): LMA#4 at [facility]. No issues per post-op anesthesia progress note. History of thumb surgery Rt History of tonsillectomy History of tooth extraction History of total knee replacement Right TKA (05/28/18): LMA#4 at [facility] S/P epidural steroid injection Past Anesthesia History No Hx of Anesthesia Complications and No Family Hx of Anesthesia Complications History of PONV No Hx of PONV and No Hx of Motion Sickness Social History Smoking Status: Former smoker tobacco type: cigarettes Smoking cigarettes per day: 40 YEARS AGO Do You Dip or Chew Tobacco: No Hx Alcohol Use: Yes Alcohol type: beer, wine and hard liquor alcohol intake frequency: holidays/special occasions only Hx Substance Use: No substance use type: does not use Review of Systems Patient denies chest pain, shortness of breath, dyspnea on exertion, cough, wheezing, palpitations. No hx of seizures, stroke, MD, apnea/snoring. No hx of blood clots or blood transfusions Physical Exam Vital Signs VITALS BP 111/69 P 63 TEMP 98.2 SP02 95% RESP 16 Constitutional no acute distress ENMT Mouth: no TMJ clicking Thyromental Distance: < 3.5 Finger Breadths (3.0) Mallampati Class: III Caps to molars and side teeth Neck neck extension not limited Respiratory normal respiratory effort; no respiratory distress Auscultation: lungs clear to auscultation bilaterally; no wheezes Cardiovascular Rate/Rhythm: regular rate and regular rhythm Heart Sounds: no murmur Vessels: no carotid bruit Heart sounds mildly diminished throughout Musculoskeletal Spine: no pain with cervical ROM Extremities: extremities normal to inspection Psychiatric Orientation: alert Lab Results Anesthesia Preop Results Results Anesthesia Widget: WBC 5.48 K/uL (4.8-10.8) 03/14/22 Hgb 11.9 g/dL (12.0-16.0) L 03/14/22 Hct 36.5 % (37-47) L 03/14/22 Plt 301 K/uL (130-400) 03/14/22 Na 137 mmol/L (136-145) 03/14/22 K 3.8 mmol/L (3.5-5.1) 03/14/22 Cl 104 mmol/L (98-107) 03/14/22 CO2 27 mmol/L (21-32) 03/14/22 BUN 23 mg/dl (6-23) 03/14/22 Creat 0.98 mg/dl (0.6-1.2) 03/14/22 Glucose Level 82 mg/dl (70-99(Fasting)) 03/14/22 PT 10.3 Seconds (9.0-12.0) 03/14/22 PTT 25.5 Seconds (21.0-31.0) 03/14/22 INR 1.0 (0.9-1.1) 03/14/22 Blood Type O Positive 03/14/22 Antibody Screen NEGATIVE 03/14/22 Testing Electrocardiogram Date: 03/14/22 Findings: + NSR @ (63bpm) Left anterior fascicular block Poor R wave progression, consider anterior MD versus lead placement versus LVH When compared to EKG from April 07, 2021no significant change was found per cardio. Chest X-Ray Date: 03/14/22 FINDINGS: PA and lateral chest radiographs are compared to study dated 04/07/2021. The heart is enlarged noting atherosclerotic calcification of the thoracic aorta. The pulmonary vasculature is noncongested. There is mild bibasilar scarring/atelectasis. The lungs and pleural spaces are otherwise clear. No pneumothorax is seen. The skeletal structures are osteopenic. The bony thorax is grossly intact. IMPRESSION: Cardiomegaly with no active disease in the chest. Echocardiogram Date: 08/15/21 EF: 55-60% LV Function: normal RWMA: + none Other Findings: no LVH Valvular Disease: + no significant valvular disease Mild mitral annular calcification Mild aortic root dilation
--- NOTE | 2022-04-12 12:12 | History & Physical Report ---
Date of Service April 12, 2022 Assessment & Plan (1) Arthritis of knee, left: We will proceed with a left total knee arthroplasty. Postoperatively she will be started on aspirin for DVT prophylaxis and kept overnight in the hospital for postoperative medical management. She plans to have the hospital set up home health upon discharge. History of Present Illness Chief Complaint: Osteoarthritis of the left knee. Primary Care Provider: Clark Gerardo MD Amina is a pleasant 82-year-old female who had her right knee replaced by Dr. Wong last year. She has been dealing with chronic worsening left knee pain. X-rays and clinical examination have been diagnostic for advanced osteoarthritis of the left knee. After failing conservative treatment, she has elected to proceed with a left total knee arthroplasty.. Allergies Allergy/AdvReac Type Severity Reaction Status Date / Time grass pollen Allergy Intermediate Sneezing Verified 03/08/22 16:51 house dust mite Allergy Intermediate Sneezing Verified 03/08/22 16:51 mold Allergy Intermediate Congested Verified 03/08/22 16:51 losartan AdvReac Intermediate lost voice Verified 03/08/22 16:51 oxycodone AdvReac Intermediate "LOOPY" Verified 03/08/22 16:51 Foxagmn-VZN-MvY Reductase AdvReac Intermediate Muscle Pain Verified 03/13/22 10:11 Inhibitor [Sumxhsf-Vbe-Jvx Reductase Inhibitor] Sulfa (Sulfonamide AdvReac Intermediate STOMACH Verified 03/13/22 10:11 Antibiotics) UPSET ragweed pollen AdvReac Mild Congested Verified 03/13/22 10:11 warfarin [From Coumadin] AdvReac Mild UPSET Verified 03/13/22 10:11 STOMACH Home Medications Medication Instructions Recorded Confirmed Type aspirin 81 mg tablet,delayed 81 mg PO HS 01/02/19 03/08/22 History release (Aspir-Low) candesartan 32 mg tablet (Atacand) 32 mg PO HS 01/02/19 03/08/22 History levothyroxine 50 mcg tablet 50 mcg PO QAM 01/02/19 03/08/22 History (Synthroid) metoprolol succinate 50 mg 150 mg PO HS 01/02/19 03/08/22 History tablet,extended release 24 hr celecoxib 200 mg capsule (Celebrex) 200 mg PO DAILY PRN 08/31/20 03/08/22 History pantoprazole 40 mg tablet,delayed 40 mg PO BID PRN tab 08/31/20 03/08/22 History release rosuvastatin 20 mg tablet (Crestor) 20 mg PO Q3D 08/31/20 03/08/22 History mometasone 50 mcg/actuation nasal 2 spray INTRANASAL DAILY PRN #17 g 01/10/22 03/08/22 Rx spray amlodipine 10 mg tablet 10 mg PO HS 02/21/22 03/08/22 History estradiol 0.5 mg tablet 0.5 mg PO QPM 03/14/22 03/14/22 History Past Med/Surg History Medical History Back pain Chronic back pain- DDD - lumbar area Chronic otitis media Does have decreased hearing in right ear due to previous infections No current issues Chronic sinusitis Stable - takes OTC allergy medication Degenerative disc disease Lumbar area; SI joint pain; hx of mild scoliosis GERD (gastroesophageal reflux disease) Well controlled and stable with Protonix Hyperlipidemia Hypertension Hypothyroidism Spinal stenosis 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 No issues per post-op anesthesia progress note. History of thumb surgery Rt History of tonsillectomy History of tooth extraction History of total knee replacement Right TKA (05/28/18): LMA#4 at [facility] S/P epidural steroid injection Family History Grandmother (Maternal) Family history of diabetes mellitus Son Hearing loss Brother Cancer Father Heart disease Grandmother Asthma Other Leukemia No family history of adverse response to anesthesia No family history of allergies No family history of bleeding disorder Denies family history of Hypertension Stroke Social History Smoking Status: Former smoker Tobacco Type: Cigarettes Years Smoked: 10; Cigarettes Per Day: 40 YEARS AGO; Second Hand Exposure: No; Hx Alcohol Use: Yes Alcohol type: beer, wine and hard liquor Preferred Language: Yemeni Communication Ability: Effective 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 Physical Exam On physical examination of the left knee, she has trace effusion. She has good motion of 0 to 120 degrees. No instability. She has pain of the distal femoral condyles. Constitutional WD/WN, vitals as above Eyes PERRL, conjunctivae normal, anicteric sclerae ENMT external ear and nose normal, oropharynx normal Neck trachea midline, no thyromegaly Respiratory normal respiratory effort Cardiovascular RRR, no murmur, no edema Gastrointestinal (Abdomen) normal bowel sounds, soft, nontender, no hepatosplenomegaly Psychiatric A+Ox3, euthymic affect Results & Data Results & Data Laboratory Results . Diagnostic Findings X-rays of the left knee show advanced osteoarthritis with joint space narrowing osteophyte formation.. PG Care Time/CCT Total # of Minutes Spent Total Time Spent with Patient: Total time spent is greater than 50% in coordination of care (as documented) at patient's floor/unit and/or counseling patient: Coding Level of Care Code None Diagnoses Arthritis of knee, left M17.12
[~2022-04-13 09:35] MED LIST changes: +ACETAMINOPHEN 500 MG TAB PO SCH; -ASPCH81X PO; +BUPIVACAINE 0.25% 30 ML VIAL ONE; +BUPIVACAINE 0.5 % 5 MG/1 ML PF 10ML VIAL ONE; -CAND32TA2 PO; -CLB/200 PO; +DEXAMETHASONE SOD INJ 4 MG/ML VIAL ONE; -DIPH25CA65 PO; +EPINEPHrine INJ 1 MG/ML AMP ONE; +GABAPENTIN 300 MG CAP PO SCH; -HYDR12.55 PO; +Ketorolac (*for OR use only*) 30 MG, dexAMETHasone 4 MG, KETAMINE HCL (**OR use only) 1... INFIL SCH; -LEVO50TA6 PO; +LR 500ML BOLUS, THEN 15ML/HR IV SCH; +LR 60ML/HR IV SCH; -METO50TA8 PO; -PANT40TA PO; -PRM/45 PO; -RANI150T85 PO; +TRANEXAMIC ACID 1,000 MG **IV Intra-op IV SCH; +TRANEXAMIC ACID 1,000 MG **IV Pre-op IV SCH; +ceFAZolin 2000MG 2,000 MG/15 ML SYR IV SCH; +dexAMETHasone 4 MG TAB PO SCH
--- NOTE | 2022-04-13 10:21 | History & Physical Bridge Note ---
Date of Service April 13, 2022 History & Physical Bridge Note I have examined the patient, reviewed the History & Physical and in the interval since the performance of the History & Physical I have noted the following changes of clinical significance: no changes noted
[2022-04-13] MEDS ORDERED: PROPOFOL IV EMULSION 10 MG/ML 20 ML VIAL IV ONE (11:40)
[2022-04-13] MEDS ORDERED: MIDAZOLAM HCL 1 MG/ML 2ML VIAL ONE (11:40)
[2022-04-13] MEDS ORDERED: fentaNYL citrate 100 MCG/2 ML VIAL ONE (11:41)
[2022-04-13] MEDS ORDERED: ORTHO JOINT ANESTHETIC ONE (12:21)
--- NOTE | 2022-04-13 13:30 | Operative Report ---
PG Post Operative Report Pre & Post Diagnosis Operation Date: 04/13/22 12:20 Pre-Op Diagnosis: Left Knee Osteoarthritis Post-Op Diagnosis: Left Knee Osteoarthritis I identified the patient and participated in the time-out.: Yes Procedure Operation Date: 04/13/22 12:20 Actual Procedures p Left Total Knee Arthroplasty(Left) - Marcellus Medina DO Surgeon Marcellus Medina DO Clinical Laboratory Manager Marcellus Penn PAC Estimated Blood Loss 10 Findings Consistent with Post-Op Diagnosis Specimens Left femoral and tibial bone Complications none Disposition Disposition: Recovery Room Description of Procedure Implants used: I used a Benny Persona total knee arthroplasty system with a size 9 narrow femur, E tibia, 31 oval patella, and a size 12 medial congruent polyethylene bearing. All components were cemented in place with Biomet cement. Amina [facility] for the above procedure. She was seen in the preoperative holding area and the operative extremity was identified and signed. She was given a preoperative antibiotic, TXA, a spinal anesthetic and an adductor nerve block. She was taken back to the operating room and laid on the table in supine position. She was given basic sedation. The operative knee was then prepped and draped in sterile fashion. A timeout was done, and the patient and the operative extremity was properly identified. A midline incision was made directly over the patella. Dissection was taken juany n to the extensor mechanism. A subvastus arthrotomy was used. The medial retinaculum was released and the fat pad was mostly excised. The knee was flexed and the ACL, PCL, and meniscus were removed. A drill was sent down the center of the femoral canal followed by an intramedullary angle. Off that angle a distal femoral cutting block was placed. 9 mm was resected off the distal femur at 5 of valgus. A posterior referencing AP sizing guide was then placed on the distal femur. The femur measured to be a size 9. 2 drill holes were placed in 3 of external rotation. A 4-in-1 cutting block was then impacted into place. Anterior, posterior, and chamfer cuts were then made. The proximal tibia was then exposed. An external tibial alignment guide was placed. A tibial cut guide was then anchored in place and the proximal tibia was then resected. The posterior aspect of the knee was then opened up and any additional meniscus fragments and osteophytes were removed. The tibia measured to be a size E. The tibial plate was then placed in the appropriate rotation and the tibia was drilled and punched. Trial components were then placed. I used a size 12 medial congruent polyethylene insert. The knee was brought through a full range of motion and felt to be stable. The peg holes for the femoral component were then drilled. The patella was then everted and 9 mm was resected off the posterior aspect of the patella. The patella measured to be a size 31 oval. 3 peg holes were then drilled. A trial patella was placed. The knee was once again brought through a full range of motion and felt to be stable. Trial components were then removed. The surrounding soft tissues were injected with 100 cc of an orthopedic pain control cocktail. All components were then cemented into place with Biomet cement. The final polyethylene insert was then snapped into place. Once cement was dry the tourniquet was deflated. Hemostasis was obtained. A dilute betadyne lavage was then done for 3 minutes. The joint was then irrigated with normal saline solution. The subvastus arthrotomy was then closed with #1 Vicryl suture. The skin was closed with 2-0 Vicryl, 3-0V lock suture, and cindy. A soft compressive dressing was placed. She was then transferred to a hospital bed and taken to the postanesthesia care unit in stable condition. She tolerated the procedure well. Marcellus Penn PA-C, was present for the entire procedure. He was critical for patient positioning, prepping, draping, retraction exposure, wound closure and application of sterile dressing. I attest to the content of the Intraoperative Record and any orders documented therein. Any exceptions are noted below.
[2022-04-13] MEDS ORDERED: ePHEDrine sulfate 50 MG/ML AMP IV PRN (13:35)
[2022-04-13] MEDS ORDERED: fentaNYL citrate 100 MCG/2 ML VIAL IV PRN (13:35)
[2022-04-13] MEDS ORDERED: ATROPINE SULFATE 0.1 MG/ML 10ML SYR IV PRN (13:35)
[2022-04-13] MEDS ORDERED: ONDANSETRON INJ 2 MG/ML 2 ML VIAL IV PRN ×2 (13:35→16:25)
[2022-04-13] MEDS ORDERED: PHENYLEPHRINE HCL 10 MG/ML VIAL ONE (13:59)
--- NOTE | 2022-04-13 14:44 | XRay Report ---
XR knee LT 1 or 2V routine CLINICAL HISTORY: Postoperative evaluation. COMPARISON: Knee radiographs August 17, 2021. FINDINGS: Alignment of the total left knee arthroplasty is anatomic. There is no periprosthetic frac ture or unexpected radiopaque foreign body. There are skin cindy. IMPRESSION: Expected findings following total left knee arthroplasty. ACT 112: Negative or not required by law. Electronically signed by: Blake Prakash M.D. 04/13/2022 2:43 PM
--- NOTE | 2022-04-13 14:53 | Anesthesiology Progress Note ---
Date of Service April 13, 2022 Anesthesia Post Procedure Vital Signs Vital Signs: Temp Pulse Pulse Resp BP Pulse Ox 04/13/22 14:40 70 20 104/66 94 04/13/22 14:30 36.5 C 65 15 113/68 93 04/13/22 14:20 65 14 106/63 98 04/13/22 14:10 65 16 100/62 99 04/13/22 14:00 61 15 98/61 L 98 04/13/22 13:53 37.2 C 65 16 93/58 L 95 04/13/22 10:04 36.4 C L 62 18 133/91 97 Transfer of Care Handoff Completed per policy Notes Mental Status: alert / awake / arousable Patient Amnestic to Procedure: Yes Nausea / Vomiting: adequately controlled Pain: adequately controlled Airway Patency, RR, SpO2: stable & adequate BP & HR: stable & adequate Hydration State: stable & adequate Neuraxial Anesthesia: was administered and sensory block is resolving Anesthetic Complications: no major complications apparent
[2022-04-13] MEDS ORDERED: NALOXONE HCL 0.4 MG/1 ML VIAL/CARP IV PRN (16:25)
[2022-04-13] MEDS ORDERED: MAGNESIUM HYDROXIDE SUSP 30 ML UDC PO PRN (16:25)
[2022-04-13] MEDS ORDERED: METOCLOPRAMIDE HCL INJ 5 MG/ML 2 ML VIAL IV PRN (16:25)
[2022-04-13] MEDS ORDERED: oxyCODONE HCL IR 5 MG TAB (IMMEDIATE RELEASE) PO PRN (16:25)
[2022-04-13] MEDS ORDERED: bisacodyL 10 MG SUPP PR PRN (16:25)
[2022-04-13] MEDS ORDERED: HYDROmorphone INJ 0.5 MG/0.5 ML SYR IV PRN (16:25)
[2022-04-13] MEDS ORDERED: ROSUVASTATIN CALCIUM 20 MG TAB PO SCH (16:30)
[2022-04-13] MEDS: ACETAMINOPHEN 500 MG TAB PO SCH ×2 (16:49→21:00)
[2022-04-13] MEDS: KETOROLAC TROMETHAMINE 15 MG/ML VIAL IV SCH ×2 (17:21→22:03)
[2022-04-13] MEDS: SODIUM CHLORIDE 0.9% 1000ML 1,000 ML IV SCH (17:21)
[2022-04-13] MEDS: ceFAZolin 2000MG 2,000 MG/15 ML SYR IV SCH (20:59)
[2022-04-13] MEDS ORDERED: estradioL 1 MG TAB PO SCH (21:00)
[2022-04-13] MEDS: ASPIRIN 81 MG ECTAB PO SCH (21:00)
[2022-04-13] MEDS: DOCUSATE SODIUM 100 MG CAP PO SCH (21:00)
[2022-04-13] MEDS ORDERED: amLODIPine BESYLATE 5 MG TAB PO SCH (21:00)
[2022-04-13] MEDS ORDERED: METOPROLOL SUCC 50MG EXT REL TAB PO SCH (21:00)
[2022-04-13] MEDS ORDERED: SENNA 8.6 MG TAB PO SCH (21:00)
[2022-04-14] MEDS: ceFAZolin 2000MG 2,000 MG/15 ML SYR IV SCH (03:06)
[2022-04-14] MEDS: KETOROLAC TROMETHAMINE 15 MG/ML VIAL IV SCH ×2 (03:07→10:38)
[2022-04-14] MEDS: SODIUM CHLORIDE 0.9% 1000ML 1,000 ML IV SCH (03:55)
[2022-04-14] MEDS: ACETAMINOPHEN 500 MG TAB PO SCH (05:33)
[2022-04-14] MEDS ORDERED: LEVOTHYROXINE SODIUM 50 MCG TABLET PO SCH (06:30)
--- NOTE | 2022-04-14 06:48 | Orthopedic Progress Note ---
Date of Service April 14, 2022 Assessment & Plan (1) Status post left knee replacement: Overall she is doing very well. She is not having much pain in the left knee. She is on aspirin for DVT prophylaxis. She will be seen by physical therapy today for ambulation and range of motion exercises. She can be discharged home later today. She will follow-up with orthopedics in 2 weeks. Zia Huynh was seen and examined at bedside this morning. Overall she is doing very well. She is not having too much pain in the left knee. She has been up and ambulating to the bathroom. She has no complaints. Review of Systems All systems reviewed & are unremarkable except as noted in HPI & below. Physical Exam On physical examination of the left knee, the dressing is clean and dry. Her leg is out full extension. She has active dorsiflexion plantarflexion of the left ankle.. Results & Data Results & Data Laboratory Results . Diagnostic Findings Postoperative x-rays of the left knee show the prosthesis to be in anatomic alignment without any evidence of fracture, desiccation, or loosening. PG Care Time/CCT Total # of Minutes Spent Total Time Spent with Patient: Total time spent is greater than 50% in coordination of care (as documented) at patient's floor/unit and/or counseling patient: Coding Level of Care Code 17314 Post Operative Follow-Up Diagnoses Status post left knee replacement Z96.652
--- NOTE | 2022-04-14 06:49 | Discharge Summary ---
Date of Service April 14, 2022 Principal Diagnosis Same as "Discharge Diagnosis" noted below under Discharge Instructions. Discharge Exam On physical examination of the left knee, the dressing is clean and dry. Her leg is out full extension. She has active dorsiflexion plantarflexion of the left ankle.. Discharge Data Procedures Performed Operation Date: 04/13/22 12:20 Actual Procedures p Left Total Knee Arthroplasty(Left) - Marcellus Medina DO Ordered Studies 04/13/22 05:00 US - OR guided needle placemen Routine Hospital Course (1) Status post left knee replacement: On April 13, 2022 Amina arrived at [facility] and underwent a left knee replaced without complication. She had a spinal anesthetic. Postoperatively she was started on aspirin for DVT prophylaxis and transferred to the general orthopedic floors. Her hospital course was uneventful. On postop day #1, her vital signs were stable and her pain was well controlled. She was able to participate well with physical therapy doing ambulation and range of motion exercises. She was then discharged home. She will follow-up with orthopedics in 2 weeks. PG Care Time/CCT Total # of Minutes Spent Total Time Spent with Patient: Total time spent is greater than 50% in coordination of care (as documented) at patient's floor/unit and/or counseling patient: Discharge Plan Discharge Items Patient Disposition: Home - Home Health Services Reason For Visit: Left Knee Osteoarthritis Discharge Diagnosis: Left knee replacement Activity: Per Instructions section Non-emergency contact: Surgeon Call non-emergency contact if: your wound has increased redness and your wound has increased drainage Follow-up/Referrals: Clark Gerardo MD [Primary Care Provider] - Diet: Regular Addtl Attending Provider Instructions: Activity and Therapy Recommendations: * If you are using [facility] then therapy will be provided at your home until they feel you have accomplished all of your goals. * If you are using [facility] then Physical Therapy will be provided until they feel you are ready to start Outpatient Physical Therapy. * If you are not using home therapy then Outpatient Physical Therapy should start about 3-5 days from your day of surgery. Therapy will last about 6-10 weeks * It is important not to put a pillow under your knee when you are relaxing or sleeping. It is just as important to make sure you are getting your knee perfectly straight as it is to regain your knee bend. * You were shown a series of exercises in the hospital. Do these exercises three times each day including the exercises you were shown in physical therapy. * Get up and walk several times each day. For the first four weeks, try not to stand or walk for more than one hour at a time. If you do stand or walk for more than one hour, you will not hurt anything, but your leg will likely swell. * As you feel comfortable, you may change from the walker or crutches to a cane and then to independent walking. Medications: * Narcotic You will likely be sent home from the hospital with a prescription for the narcotic pain medication that worked best throughout your stay. * Aspirin Most patients will be required to take Aspirin 81mg twice a day for 6 weeks after surgery. This is obtained [id number] and a prescription is not necessary. * Other medications may be prescribed for specific circumstances. If you have any questions, please call the office at . * Resume previous home medications unless otherwise instructed TEDs/Elastic Stockings: The white elastic stockings help limit swelling and prevent blood clots from forming in your legs.~ The more you wear them, the more they work. Wear them for six weeks. Dressing Care: The dressing can be changed after physical therapy on postop day #1. Daily dry dressing changes for a few days, especially if the incision is still draining some. If the incision is not draining then you may leave the cindy open to air. If there is a little bit of drainage or if the cindy are getting stuck on your clothing then cover the incision with a dry dressing. The cindy will be removed at your 2 week follow-up appointment. Showering: You may shower 5 days from the day of surgery as long as the incision is no longer draining. You may shower with the cindy exposed. Let soapy water run over the cindy and pat them dry. Do not scrub or soak the incision. Things To Watch For: * Drainage from the incision site that occurs more than one week after your surgery. * Increased redness at the incision site. * Fever above 102 degrees Fahrenheit. * Unusual chest pain or shortness of breath. * Call [facility] at with any of the above problems Follow-Up Visit: Follow-up with Dr. Mdeina's PA (Marcellus Penn) 2-3 weeks after your day of surgery. He will remove your cindy and answer any questions. If you have any additional questions or concerns, Dr Medina is usually in the office at the same time and will be available An appointment was probably scheduled when you signed-up for surgery in the office. If you have any questions call Office Instructions: More detailed instructions as well as Frequently Asked Questions were provided in a folder by our office when you signed-up for surgery. Please review these instructions when you get home. If you have any further questions or concerns, please feel free to call the office at [phone] Pending Studies at Discharge: No Stand-Alone Forms: My [facility] Medications and DC Order Prescriptions: New oxycodone-acetaminophen 5-325 mg tablet 1 tab PO Q6H PRN (Reason: pain) Qty: 30 RF: 0 aspirin 81 mg Tablet,Delayed Release (Dr/Ec) 81 mg PO BID 42 Days Qty: 0 RF: 0 Continued mometasone 50 mcg/actuation spray,non-aerosol 2 spray intranasal DAILY PRN (Reason: Congestion) Qty: 17 RF: 8 rosuvastatin [Crestor] 20 mg tablet 20 mg PO Q3D RF: 0 celecoxib [Celebrex] 200 mg capsule 200 mg PO DAILY PRN (Reason: Pain) RF: 0 pantoprazole 40 mg tablet,delayed release (DR/EC) 40 mg PO BID PRN (Reason: Heartburn) RF: 0 metoprolol succinate 50 mg Tablet Extended Release 24 Hr 150 mg PO HS RF: 0 levothyroxine [Synthroid] 50 mcg Tablet 50 mcg PO QAM RF: 0 candesartan [Atacand] 32 mg Tablet 32 mg PO HS RF: 0 amlodipine 10 mg Tablet 10 mg PO HS RF: 0 estradiol 0.5 mg Tablet 0.5 mg PO QPM RF: 0 Discontinued aspirin [Aspir-Low] 81 mg Tablet,Delayed Release (Dr/Ec) 81 mg PO HS RF: 0 Discharge Orders: Discharge Order (Routine); Ordered 04/14/22 Ordered By: Marcellus Medina Admission Data Admit Date/Time: 04/13/22 13:54 Attending Provider: Marcellus Medina Admit Provider: Marcellus Medina Primary Care Provider: Clark Gerardo
[2022-04-14] MEDS ORDERED: dexAMETHasone 4 MG TAB PO SCH (08:00)
[2022-04-14] MEDS: DOCUSATE SODIUM 100 MG CAP PO SCH (08:22)
[2022-04-14] MEDS: ASPIRIN 81 MG ECTAB PO SCH (08:22)
[2022-04-14] MEDS ORDERED: MULTIVITAMIN TAB PO SCH (09:00)
== END 2022-04-14 12:36 | disposition home or self-care (01) ==
LOC: ASU 09:35 → 3E 09:35

== ENCOUNTER 2025-08-05 08:40 | Observation (INO) ==
--- NOTE | 2025-07-02 08:54 | PAT Medication Instructions ---
Medication Instructions Date of Service July 02, 2025 Home Medications Medication Instructions Recorded mometasone 50 mcg/actuation nasal 2 spray intranasal DAILY PRN 10/25/22 spray Congestion #17 grams candesartan 32 mg tablet (Atacand) 32 mg PO HS levothyroxine 50 mcg tablet (Synthroid) 50 mcg PO QAM metoprolol succinate 50 mg tablet,extended release 24 hr 50 mg PO HS pantoprazole 40 mg tablet,delayed release 40 mg PO BID PRN mometasone 50 mcg/actuation nasal spray 2 spray intranasal DAILY PRN amlodipine 2.5 mg tablet 2.5 mg PO HS aspirin 81 mg tablet,delayed release 81 mg PO HS fexofenadine 180 mg tablet 180 mg PO UD hydrochlorothiazide 12.5 mg tablet 12.5 mg PO Q2D lactase 3,000 unit tablet (Lactaid) 3,000 unit PO QID PRN omega-3 fatty acids 1,000 mg capsule 1,000 mg PO HS pseudoephedrine HCl 30 mg tablet 30 mg PO Q6H PRN vitamin E mixed 200 unit tablet 200 unit PO HS compound cream 1 applic topical UD PRN celecoxib 200 mg capsule 200 mg PO DAILY PRN cetirizine 10 mg tablet 10 mg PO UD evolocumab 140 mg/mL subcutaneous pen injector (Repatha SureClick) 140 mg subcut Q14D metoprolol succinate 100 mg tablet,extended release 24 hr 100 mg PO HS Continue as directed mometasone 50 mcg/actuation nasal spray 2 spray intranasal DAILY PRN(if needed) ASK your surgeon for instructions celecoxib 200 mg capsule 200 mg PO DAILY PRN ASK your prescriber and surgeon aspirin 81 mg tablet,delayed release 81 mg PO HS evolocumab 140 mg/mL subcutaneous pen injector (Repatha SureClick) 140 mg subcut Q14D STOP taking 2 weeks before surgery (or as soon as possible if surgery is within 2 weeks) omega-3 fatty acids 1,000 mg capsule 1,000 mg PO HS vitamin E mixed 200 unit tablet 200 unit PO HS STOP taking 24 hours before surgery compound cream 1 applic topical UD PRN DO NOT take the morning of surgery fexofenadine 180 mg tablet 180 mg PO UD hydrochlorothiazide 12.5 mg tablet 12.5 mg PO Q2D lactase 3,000 unit tablet (Lactaid) 3,000 unit PO QID PRN pseudoephedrine HCl 30 mg tablet 30 mg PO Q6H PRN cetirizine 10 mg tablet 10 mg PO UD Take morning of surgery With a small sip of water, OTHERWISE NOTHING TO EAT OR DRINK AFTER MIDNIGHT: levothyroxine 50 mcg tablet (Synthroid) 50 mcg PO QAM pantoprazole 40 mg tablet,delayed release 40 mg PO BID PRN(if needed) Take evening before surgery candesartan 32 mg tablet (Atacand) 32 mg PO HS metoprolol succinate 50 mg tablet,extended release 24 hr 50 mg PO HS pantoprazole 40 mg tablet,delayed release 40 mg PO BID PRN(if needed) amlodipine 2.5 mg tablet 2.5 mg PO HS pseudoephedrine HCl 30 mg tablet 30 mg PO Q6H PRN(if needed) metoprolol succinate 100 mg tablet,extended release 24 hr 100 mg PO HS Other Notes If you have any questions please call us at [phone] or [phone] or [phone] or [phone]
--- NOTE | 2025-07-06 09:02 | Anesthesiology Consultation ---
Date of Service July 06, 2025 Assessment & Plan (1) Encounter for pre-operative examination: - Case discussed in detail with Dr. Sanchez who advised nothing further is needed including from a cardiac standpoint, and that patient is acceptable to proceed as planned at [facility]. - will request copy of angiography 11/2024 Formerly [facility]-Dr. James and Dr. Tee. - cardiology office visit 06/08/25 [facility]: "...ascending aortic aneurysm, bovine aortic arch. Penetrating ulcer of thoracic aorta/proximal arch...coronary angiography December 09, 2024 [id number] atherosclerosus [sic] of the LAD, 50% and RCA 40% without obstructive disease...heart catheterization in [place] revealed the aneurysm not of surgical severity...annual imaging...conservative management preferred currently...order echocardiogram in October or November 2025. With possible repeat CAT scan depending on clinical findings. Advise against maximal lifting and strenuous activities..." - Outpatient joint assessment: Patient is currently scheduled for inpatient pathway. If re-evaluated and patient/surgeon requests outpatient pathway, patient is not a candidate for outpatient joint program. Chart Review Chart Review: Pending: Refer to Additional Notes / Consult section and Patient seen in Pre Admission Testing Teaching & Discussion Pre-Anesthesia Teaching/Discussion Notes: Instructed NPO after midnight before surgery, except medications with 15 cc of water. Medication instructions provided according to the PAT guidelines. History Surgery Operation Date: 08/05/25 11:20 Proposed Procedures p Left Total Hip Arthroplasty - Quang Burdick MD Height/Weight Height: 5 ft 5 in Weight: 77.8 kg Allergies Allergy/AdvReac Type Severity Reaction Status Date / Time grass pollen Allergy Intermediate Sneezing Verified 06/30/25 12:42 house dust mite Allergy Intermediate Sneezing Verified 06/30/25 12:42 mold Allergy Intermediate Congested Verified 06/30/25 12:42 losartan AdvReac Intermediate lost voice Verified 06/30/25 12:42 oxycodone AdvReac Intermediate "LOOPY" Verified 06/30/25 12:42 Wowiauf-NMI-[id number] Reductase AdvReac Intermediate Muscle Pain Verified 06/30/25 12:42 Inhibitor [Ahxmmya-Zys-Juv Reductase Inhibitor] Sulfa (Sulfonamide AdvReac Intermediate STOMACH Verified 06/30/25 12:42 Antibiotics) UPSET ragweed pollen AdvReac Mild Congested Verified 06/30/25 12:42 warfarin [From Coumadin] AdvReac Mild UPSET Verified 06/30/25 12:42 STOMACH Medications Home Medications Medication Instructions Recorded Confirmed Last Taken candesartan 32 mg tablet (Atacand) 32 mg PO HS 01/02/19 06/30/25 04/12/22 23:00 levothyroxine 50 mcg tablet 50 mcg PO QAM 01/02/19 06/30/25 04/13/22 08:30 (Synthroid) metoprolol succinate 50 mg 50 mg PO HS 01/02/19 06/30/25 04/12/22 23:00 tablet,extended release 24 hr pantoprazole 40 mg tablet,delayed 40 mg PO BID PRN GERD 08/31/20 06/30/25 04/13/22 08:30 release mometasone 50 mcg/actuation nasal 2 spray intranasal DAILY PRN 10/25/22 06/30/25 Unknown spray Congestion #17 grams amlodipine 2.5 mg tablet 2.5 mg PO HS 04/18/23 06/30/25 Unknown aspirin 81 mg tablet,delayed 81 mg PO HS 04/18/23 06/30/25 Unknown release fexofenadine 180 mg tablet 180 mg PO UD 04/18/23 06/30/25 Unknown hydrochlorothiazide 12.5 mg tablet 12.5 mg PO Q2D 09/17/24 06/30/25 Unknown lactase 3,000 unit tablet (Lactaid) 3,000 unit PO QID PRN Lactose 09/17/24 06/30/25 Unknown Intolerance omega-3 fatty acids 1,000 mg 1,000 mg PO HS 09/17/24 06/30/25 Unknown capsule pseudoephedrine HCl 30 mg tablet 30 mg PO Q6H PRN Congestion 09/17/24 06/30/25 Unknown vitamin E mixed 200 unit tablet 200 unit PO HS 09/17/24 06/30/25 Unknown compound cream 1 applic topical UD PRN feet 10/01/24 06/30/25 Unknown celecoxib 200 mg capsule 200 mg PO DAILY PRN Pain 06/30/25 06/30/25 Unknown cetirizine 10 mg tablet 10 mg PO UD 06/30/25 06/30/25 Unknown evolocumab 140 mg/mL subcutaneous 140 mg subcut Q14D 06/30/25 06/30/25 Unknown pen injector (Repatha SureClick) metoprolol succinate 100 mg 100 mg PO HS 06/30/25 06/30/25 Unknown tablet,extended release 24 hr Past Medical History Medical History (Updated 07/06/25 @ 10:33 by Rena Brooks PA-C) Chronic otitis media Does have decreased hearing in right ear due to previous infections No current issues Chronic sinusitis Stable - takes OTC allergy medication Degenerative disc disease Lumbar area; SI joint pain; hx of mild scoliosis Dilation of aorta "4.5 dilation, been that size for years" per pt; f/u [facility] cardio in the past, now sees dr. whiting, [facility] cardio GERD (gastroesophageal reflux disease) Well controlled and stable with Protonix prn Hx of angiography 11/2024, [facility] with Dr. James and surgeon Dr. 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 Patient denies h/o stroke, seizures, heart attack, heart failure, DM, blood clots/DVTs or blood transfusions. Exercise / Class Metabolic Activity II 4-5 Yardwork/Stairs/Walk up hill (denies chest discomfort or shortness of breath with one flight of stairs) Past Family History Family History Grandmother (Maternal) Family history of diabetes mellitus Son Hearing loss Brother Cancer Father Heart disease Grandmother Asthma Other Leukemia No family history of adverse response to anesthesia No family history of allergies No family history of bleeding disorder Denies family history of Hypertension Stroke Past Surgical History Surgical History (Updated 07/06/25 @ 10:33 by Rena Brooks PA-C) H/O lumpectomy left breast>benign History of cataract surgery rt/lt History of colonoscopy History of dilatation and curettage History of endoscopic sinus surgery (2019) History of esophagogastroduodenoscopy (EGD) History of hip surgery LEFT HIP SURGERY (SPUR REMOVED/TENDON REPAIR) History of laminectomy (04/21/15) lumbar History of myringotomy Multiple ESS, balloon Eustachian tube, left myringotomy (09/18/19): LMA#4 at [facility]. No issues per post-op anesthesia progress note. History of thumb surgery Rt History of tonsillectomy History of tooth extraction History of total knee replacement Right TKA (05/28/18): LMA#4 at [facility] left TKA Hx of sinus surgery (1992) Hx of vaginal hysterectomy (1987) S/P epidural steroid injection multiple Past Anesthesia History No Hx of Anesthesia Complications and No Family Hx of Anesthesia Complications History of PONV No Hx of PONV and No Hx of Motion Sickness Social History Smoking Status: Former smoker tobacco type: cigarettes Smoking cigarettes per day: 40 YEARS AGO Do You Dip or Chew Tobacco: No Smoking End Date: over 50 years ago Hx Alcohol Use: Yes Alcohol type: beer, wine and hard liquor alcohol intake frequency: holidays/special occasions only Hx Substance Use: No substance use type: does not use Review of Systems Patient denies chest pain, shortness of breath, dyspnea on exertion, fever, chills, cough, wheezing, or palpitations. Physical Exam Vital Signs Vitals BP 113/74 P 59 TEMP 97.6 SP02 95% on RA RESP 18 Physical Patient resting comfortably in chair in no acute distress, alert and oriented, responding appropriately throughout visit Full cervical extension range of motion without pain TMD 3.5 finger breadths Mallampati Score 2 Dentition: one crown, denies chipped or loose teeth, caps, implants or bridges Lungs: normal respiratory effort. Good air movement, clear throughout to auscultation, no adventitious breath sounds Cardiac: regular rate and rhythm, no murmurs noted Carotid arteries: negative bruit bilat Lab Results Anesthesia Preop Results Results Anesthesia Widget: WBC 4.05 K/ul (4.8-10.8) L 07/06/25 Hgb 12.4 g/dl (12.0-16.0) 07/06/25 Hct 37.8 % (37.0-47.0) 07/06/25 Plt 197 K/uL (130-400) 07/06/25 Na 138 mmol/L (136-145) 07/06/25 K 4.1 mmol/L (3.5-5.1) 07/06/25 Cl 105 mmol/L (98-107) 07/06/25 CO2 28 mmol/L (21-32) 07/06/25 BUN 24 mg/dl (6-23) H 07/06/25 Creat 0.94 mg/dl (0.6-1.2) 07/06/25 Glucose Level 101 mg/dl (70-99(Fasting)) H 07/06/25 PT 10.7 Seconds (9.0-12.0) 07/06/25 PTT 27 Seconds (21-31) 07/06/25 INR 1.0 (0.9-1.1) 07/06/25 Urine Color Yellow 07/06/25 Urine Appearance Clear (Clear) 07/06/25 Urine pH 5.0 (4.5-7.5) 07/06/25 Urine Specific [place] 1.015 (1.000-1.030) 07/06/25 Urine Protein Negative (Negative) 07/06/25 Urine Glucose (UA) Negative (Negative) 07/06/25 Urine Ketones Negative (Negative) 07/06/25 Urine Blood Negative (Negative) 07/06/25 Urine Nitrite Negative (Negative) 07/06/25 Urine Bilirubin Negative (Negative) 07/06/25 Urine Urobilinogen Negative (Negative) 07/06/25 Urine Leukocyte Esterase Negative (Negative) 07/06/25 Blood Type O Positive 07/06/25 Antibody Screen NEGATIVE 07/06/25 Testing Electrocardiogram Date: 07/06/25 Sinus bradycardia, rate 57 bpm Left axis deviation Minimal voltage criteria for LVH, may be normal variant Possible anterior infarct, cited on or before 04/18/2023 EKG QRS duration has increased, ventricular rate has decreased by 30 bpm vs 04/18/2023 EKG Chest X-Ray Date: 07/06/25 Stable cardiomegaly without pulmonary vascular congestion. No consolidation or pleural effusion. IMPRESSION: No acute findings. Echocardiogram Date: 11/01/24 Technically difficult study due to heart orientation No regional wall motion abnormalities EF 65-70% Basal asymmetric septal hypertrophy of the elderly Grade I diastolic dysfunction Mildly dilated RA Dilated aortic root at the sinus of Valsalva, measuring 4.3 cm Dilated ascending aorta, measuring 4.9 cm with an index of 2.69 cm/m2 Calcified, tricuspid aortic valve without stenosis. Mild aortic insufficiency Mild mitral regurgitation Normal estimated pulmonary artery pressures, estimated PASP 23 mmHg Other Testing Lumbar spine x-ray 04/21/25 1. Moderate spondylosis as detailed above. 2. Status post L3-L4 laminectomy. 3. Straightening of lumbar lordosis is seen likely due to muscle spasm. 4. Interval progression in degenerative process on comparison.
[~2025-08-05 08:40] MED LIST changes: -ACETAMINOPHEN 500 MG TAB PO SCH; -BUPIVACAINE 0.25% 30 ML VIAL ONE; -DEXAMETHASONE SOD INJ 4 MG/ML VIAL ONE; -EPINEPHrine INJ 1 MG/ML AMP ONE; -GABAPENTIN 300 MG CAP PO SCH; -Ketorolac (*for OR use only*) 30 MG, dexAMETHasone 4 MG, KETAMINE HCL (**OR use only) 1... INFIL SCH; -LR 500ML BOLUS, THEN 15ML/HR IV SCH; -LR 60ML/HR IV SCH; -TRANEXAMIC ACID 1,000 MG **IV Intra-op IV SCH; -TRANEXAMIC ACID 1,000 MG **IV Pre-op IV SCH; -ceFAZolin 2000MG 2,000 MG/15 ML SYR IV SCH; -dexAMETHasone 4 MG TAB PO SCH
[2025-08-05] MEDS ORDERED: MIDAZOLAM HCL 1 MG/ML 2ML VIAL ONE (09:01)
[2025-08-05] MEDS ORDERED: PROPOFOL IV EMULSION 10 MG/ML 20 ML VIAL IV ONE (09:01)
[2025-08-05] MEDS ORDERED: ONDANSETRON INJ 2 MG/ML 2 ML VIAL ONE (09:01)
[2025-08-05] MEDS: CeleBREX 200 MG CAP PO SCH (09:13)
[2025-08-05] MEDS: LR 500ML BOLUS, THEN 15ML/HR IV SCH (09:13)
[2025-08-05] MEDS: ACETAMINOPHEN 500 MG TAB PO SCH (09:13)
[2025-08-05] MEDS: dexAMETHasone**PF** 10 MG/ML VIAL IV SCH (09:14)
[2025-08-05] MEDS: FAMOTIDINE 20 MG TAB PO SCH (09:14)
[2025-08-05] MEDS: LR 60ML/HR IV SCH (09:16)
[2025-08-05] MEDS ORDERED: ONDANSETRON INJ 2 MG/ML 2 ML VIAL IV PRN ×2 (10:07→12:28)
[2025-08-05] MEDS ORDERED: ATROPINE SULFATE 0.1 MG/ML 10ML SYR IV PRN (10:07)
[2025-08-05] MEDS: TRANEXAMIC ACID 1,000 MG **IV Pre-op IV SCH (10:33)
--- NOTE | 2025-08-05 10:42 | History & Physical Bridge Note ---
Date of Service August 05, 2025 History & Physical Bridge Note I have examined the patient, reviewed the History & Physical and in the interval since the performance of the History & Physical I have noted the following changes of clinical significance: no changes noted
[2025-08-05] MEDS: ORTHO JOINT ANESTHETIC ONE (11:07)
[2025-08-05] MEDS: ROPIV 0.5% 246mg, Ketorolac 30mg, EPINEPHrine 0.5mg in NSS INFIL SCH (11:42)
[2025-08-05] MEDS ORDERED: ePHEDrine sulfate 50 MG/5 ML SYR ONE (11:45)
--- NOTE | 2025-08-05 12:16 | Operative Report ---
Post Operative Report Pre & Post Diagnosis Operation Date: 08/05/25 10:40 Preoperative diagnosis: Left hip arthritis and labrum tear Postoperative diagnosis: Left hip arthritis and labrum tear I identified the patient and participated in the time-out.: Yes Procedure Operation Date: 08/05/25 10:40 Left total hip arthroplasty Surgeon Quang Burdick MD [place] GABRIEL Landon PA-C. No resident or fellow was available to assist. Estimated Blood Loss 100 Findings Consistent with Post-Op Diagnosis Specimens Left femoral head Anesthesia Type Spinal MAC Complications none Disposition Disposition: Recovery Room Indications 85-year-old female with left hip pain refractory to conservative management. She has previously undergone a open gluteus medius repair by my partner several years ago. However, she is continue to have hip pain. She had excellent relief of her symptoms after an intra-articular corticosteroid injection. MRI was obtained which demonstrated arthritis in the left hip albeit mild and a labrum tear. Having failed extensive conservative treatment she was now a candidate for surgery. I had a long discussion with her about the risks and benefits of surgery, alternatives to surgery, and expected outcomes. After reviewing all these she elected to proceed with surgery. All questions were answered. Informed consent was signed. Description of Procedure Patient was identified in the preoperative holding area where the surgical site, left hip, was marked. A spinal anesthetic was placed, then the patient was brought back to the main operating room, placed in the operating table and moved into the lateral decubitus position. Axillary roll was placed. All bony prominences were padded. Perioperative antibiotics and tranexamic acid 1 gram IV were administered. The operative extremity was prepped and draped in the normal sterile fashion. Prior to incision a multidisciplinary timeout was called. All in the room were in agreement. We began by making an incision for a posterior approach to the hip. We dissected down through subcutaneous tissues to the level of the fascia. The fascia was incised in line with the incision. Charnley bow was placed. Fatty tissue was reflected posteriorly off the back of the greater trochanter to expose the piriformis and short external rotators of the hip. Quadratus femoris was taken off the femur subperiosteally. The piriformis and short external rotators were dissected off the posterior aspect of the hip. A box cut was made in the capsule. Inferior hip capsule was released off the femur. The femoral head was dislocated. The femoral neck cut was made at our preoperative template. The acetabulum was then exposed. The labrum was sharply excised. Contents of the cotyloid fossa were removed with electrocautery. We then began reaming at a size 8 mm less than our preoperative template. We reamed up by 1 [address] the way up to a size 52 mm cup. This gave us good bleeding cancellus bone circumferentially. The acetabulum was then irrigated out and dried. The real emphasis cup was then impacted down into position with 40 degrees of lateral opening and 20 degrees of anteversion. A single cancellous bone screw was placed up into the ilium. Excellent fixation was obtained. A metal dual mobility liner was then impacted into the shell. Dual mobility was indicated given her increased risk for dislocation as a female over age 80. Next we turned our attention to the femur. The lateral neck was removed with a box osteotome. Intramedullary guide was used to establish the intramedullary canal. We then broached all the way up to a size 3. We began trialing with a high offset neck and a +1.5 head. Hip was reduced. Leg lengths were symmetric. The hip was stable in extension and external rotation, and stable in the sleeper position. At 90 degrees of hip flexion the hip could be internally rotated 75 degrees before levering out of the cup. I was very happy with the stability exam. Therefore the hip was dislocated and the femoral trial was removed. The femoral canal was irrigated and dried. The real Actis femoral stem was opened up. This was impacted down into position. The dual mobility femoral head was opened up, assembled on the back table, and gently impacted down onto the trunnion. The hip was atraumatically reduced. Another 1 gram of IV tranexamic acid was started prior to closure. The wound was irrigated out with sterile Betadine solution. The periarticular injection cocktail was then placed. The short external rotators, piriformis, and posterior capsule were repaired through drill holes in the greater trochanter using #2 Vicryl. The fascia was run with a looped #1 PDS. The subcutaneous layer was closed with #1 PDS. The dermal layer was closed with 2-0 Vicryl. Zip line was used for the skin followed by a Silverlon dressing. A compressive dressing was then placed. The patient was then rolled supine. Leg lengths were rechecked and were symmetric. An abduction pillow was placed. Sedation was lifted and the patient was transferred to the recovery room in stable condition. Summary of implants: Depuy emphasis acetabular Shell Sector Cup, 52 mm outer diameter [place] Cancellous bone screw, 6.5 x 40 mm Bedias hole eliminator [place] emphasis dual mobility liner, 52/42 DePuy Actis collared cementless Femoral stem, 12/14 taper, size 3 high offset 42 x 28 bipolar emphasis polyethylene mobile-bearing head 28 mm ceramic femoral head with +1.5 offset Postoperative course: Patient will be admitted overnight from the recovery room. Patient will be weightbearing as tolerated with posterior hip precautions. Aspirin for DVT prophylaxis I attest to the content of the Intraoperative Record and any orders documented therein. Any exceptions are noted below.
--- NOTE | 2025-08-05 12:24 | Operative Report ---
Post Operative Report Pre & Post Diagnosis Operation Date: 08/05/25 10:40 Pre-Op Diagnosis: Left Hip Osteoarthritis Post-Op Diagnosis: Left Hip Osteoarthritis I identified the patient and participated in the time-out.: Yes Procedure Operation Date: 08/05/25 10:40 Actual Procedures p Left Total Hip Arthroplasty(Left) - Quang Burdick MD Surgeon Quang Burdick MD Wireless Watcher GABRIEL Landon PA-C. No resident or fellow was available to assist. Estimated Blood Loss 100 Findings Consistent with Post-Op Diagnosis Specimens femoral head Description of Procedure I was present during the entire case assisting with positioning, prepping, draping, wound retraction, wound closure, dressing and abduction pillow placement. No fellow present. Please see Dr. Burdick operative note for specifics of the case. I attest to the content of the Intraoperative Record and any orders documented therein. Any exceptions are noted below.
[2025-08-05] MEDS ORDERED: METOCLOPRAMIDE HCL INJ 5 MG/ML 2 ML VIAL IV PRN (12:28)
[2025-08-05] MEDS ORDERED: diphenhydrAMINE 50 MG/ML VIAL IV PRN (12:28)
[2025-08-05] MEDS ORDERED: ALUMINUM/MAGNESIUM SUSP 30 ML UDC PO PRN (12:28)
[2025-08-05] MEDS ORDERED: ACETAMINOPHEN 1,000 MG/100 ML VIAL IV PRN (12:28)
[2025-08-05] MEDS ORDERED: NALOXONE HCL 0.4 MG/1 ML VIAL/CARP IV PRN (12:28)
[2025-08-05] MEDS ORDERED: MAGNESIUM HYDROXIDE SUSP 30 ML UDC PO PRN (12:28)
--- NOTE | 2025-08-05 13:04 | XRay Report ---
SINGLE VIEW PELVIS CLINICAL HISTORY: Postoperative examination. FINDINGS: 2 AP, portable, supine pelvic x-rays are compared to study dated 07/14/2025. The skeletal st ructures are osteopenic. A bipolar left hip arthroplasty is in anatomic alignment. A single lag screw transfixes the acetabular cup. No acute fracture is seen. [id number] arthritic change and join t space narrowing is noted in the right hip. Degenerative sclerosis is seen in the sacroiliac joints and pubic symphysis. There is advanced lumbosacral spondylosis and mild scoliosis. Soft tissue edema and subcutaneous gas overlying the left hip are expected postsurgical changes. IMPRESSION: Expected postoperative findings status post left hip arthroplasty placement. No acute fra cture is seen. Electronically signed by: Skyler Camacho M.D. 08/05/2025 1:03 PM
--- NOTE | 2025-08-05 13:37 | Anesthesiology Progress Note ---
Date of Service August 05, 2025 Anesthesia Post Procedure Vital Signs Vital Signs: Temp Pulse Pulse Resp BP BP Pulse Ox 08/05/25 13:25 59 L 17 119/61 93 08/05/25 13:10 59 L 20 121/62 94 08/05/25 13:00 58 L 19 115/81 97 08/05/25 12:50 59 L 18 111/65 98 08/05/25 12:40 57 L 15 110/67 95 08/05/25 12:30 54 L 15 108/65 100 08/05/25 12:22 36.1 C L 63 12 113/65 96 08/05/25 09:06 36.6 C 67 20 140/80 99 O2 Del Method O2 Flow Rate 08/05/25 13:25 Room Air 08/05/25 13:10 Room Air 08/05/25 13:00 Room Air 08/05/25 12:50 Room Air 08/05/25 12:40 Room Air 08/05/25 12:30 Oxymask 4 08/05/25 12:22 Oxymask 6 08/05/25 09:06 Room Air Transfer of Care Handoff Completed per policy Notes Mental Status: alert / awake / arousable and participated in evaluation Patient Amnestic to Procedure: Yes Nausea / Vomiting: adequately controlled Pain: adequately controlled Airway Patency, RR, SpO2: stable & adequate BP & HR: stable & adequate Hydration State: stable & adequate Anesthetic Complications: no major complications apparent and Pt Satisfied with anesthetic care
[2025-08-05] MEDS ORDERED: LACTASE 3000 UNIT TAB PO PRN (14:28)
[2025-08-05] MEDS ORDERED: PSEUDOEPHEDRINE HCL 30 MG TAB PO PRN (14:28)
[2025-08-05] MEDS ORDERED: CeleBREX 200 MG CAP PO PRN (14:28)
[2025-08-05] MEDS ORDERED: COMPOUND topical PRN (14:28)
[2025-08-05] MEDS ORDERED: FLUTICASONE PROPIONATE NA SPR 16 GM BTL PRN (15:15)
[2025-08-05] MEDS: CETIRIZINE HCL 10 MG TABLET PO SCH (17:19)
[2025-08-05] MEDS: hydroCHLOROthiazide 25 MG TAB PO SCH (17:19)
[2025-08-05] MEDS: Scopolamine CHECK PATCH PLACEMENT SCH (17:19)
[2025-08-05] MEDS: FEXOFENADINE HCL 180 MG TAB PO SCH (17:19)
[2025-08-05] MEDS: SODIUM CHLORIDE 0.9% 1,000 ML IV SCH (17:45)
[2025-08-05] MEDS: SENNA 8.6 MG TAB PO SCH (20:43)
[2025-08-05] MEDS: DOCUSATE SODIUM 100 MG CAP PO SCH (20:43)
[2025-08-05] MEDS: OMEGA-3 (PURIFIED FISH OIL) 1 GM CAP PO SCH (20:44)
[2025-08-05] MEDS: TOCOPHERYL, DL-ALPHA 400 UNITS 180 MG CAP PO SCH (20:47)
[2025-08-05] MEDS: METOPROLOL SUCC 50MG EXT REL TAB PO SCH ×2 (20:48→20:50)
[2025-08-05] MEDS: LOSARTAN POTASSIUM 50 MG TAB PO SCH (20:49)
[2025-08-06 03:16] VITALS: RESP 16
[2025-08-06] MEDS: LEVOTHYROXINE SODIUM 50 MCG TABLET PO SCH (03:52)
[2025-08-06 07:40] VITALS: BP 128/73; TEMP 98.2; O2SAT 94
[2025-08-06] MEDS: ASPIRIN 81 MG ECTAB PO SCH (07:55)
[2025-08-06] MEDS: MULTIVITAMIN TAB PO SCH (07:56)
[2025-08-06] MEDS: dexAMETHasone 10 MG in SYRINGE 0 ML IV SCH (07:57)
--- NOTE | 2025-08-06 09:34 | Orthopedic Progress Note ---
Date of Service August 06, 2025 Assessment & Plan (1) S/P total left hip arthroplasty: Plan: POD1 s/p total hip arthroplasty WBAT with walker, posterior hip precautions, abduction pillow x 8 weeks PT/OT Diet - advance as tolerated Frequently ice DVT prophylaxis: ASA 81mg BID x 6 weeks, TEDS x 2 weeks Pain control: Tylenol 1000mg q 8hrs, Celebrex 200mg BID x 2 weeks, Tramadol 50- 100mg q4-6 hrs for severe pain Dressing: Silverlon in place, can remain on until 2 week follow up. Home nursing may reinforce as needed or she is aware to contact our office with any questions or concerns Recommend stool softener, Colace sent to pharmacy Discharge home with home health when cleared by PT Follow up as scheduled with [facility] in 2 weeks Plan Pt deemed medically stable and ready for discharge once cleared by PT/OT. Admission and Anticipated Discharge Date Admission Date: August 05, 2025 Subjective Pt was seen and examined bedside. POD #1 s/p Left LESTER with Dr Burdick. Pt was admitted last night for observation. No major events over night. Vitals are stable. Labs unremarkable. X-rays show normal post operative changed. Pt reports they are doing well and pain is controlled with tramadol and tylenol. They are tolerating PO intake and voiding adequate amounts. No BM yet. Has not yet worked with PT/OT. Pt denies F/C, N/V/D, SOB, CP, dizziness or ROQUE. Physical Exam Physical Exam: General: Pt sitting in chair, AA&O, in NAD, calm and cooperative during exam Lower Extremity: Dressing in tact and not saturated. Foam tape removed and silverlon left in place. No drainage noted. Thigh soft and compressible. Pt has full ROM of ankle and all 5 digits. Pt has 5/5 strength with resisted DF/PF. SLR in tact. Can actively extend and flex her knee. Calf supple and non tender. NVI with sensation to light touch distally and good distal pulses present. Can tolerate light gentle passive motion in abduction and adduction to neutral. Results & Data Vital Signs (Past 12 Hours) Vital Signs Temp Pulse Resp BP Pulse Ox O2 Del Method 08/06/25 07:39 36.8 C 60 16 128/73 94 Room Air 08/06/25 03:16 36.3 C L 70 16 137/76 97 Room Air 08/06/25 00:13 36.4 C L 64 20 113/69 96 Room Air
--- NOTE | 2025-08-06 09:51 | Discharge Summary ---
Date of Service August 06, 2025 Admission HPI Per Admitting Provider Patient had end-stage severe left hip osteoarthritis, failed conservative treatment, and underwent left LESTER with Dr Burdick 08/05/25. Principal Diagnosis s/p left total hip arthroplasty Discharge Exam General: Pt sitting in chair, AA&O, in NAD, calm and cooperative during exam Lower Extremity: Dressing in tact and not saturated. Foam tape removed and silverlon left in place. No drainage noted. Thigh soft and compressible. Pt has full ROM of ankle and all 5 digits. Pt has 5/5 strength with resisted DF/PF. SLR in tact. Can actively extend and flex her knee. Calf supple and non tender. NVI with sensation to light touch distally and good distal pulses present. Can tolerate light gentle passive motion in abduction and adduction to neutral. Discharge Data Allergies Allergy/AdvReac Type Severity Reaction Status Date / Time grass pollen Allergy Intermediate Sneezing Verified 08/05/25 09:02 house dust mite Allergy Intermediate Sneezing Verified 08/05/25 09:02 mold Allergy Intermediate Congested Verified 08/05/25 09:02 losartan AdvReac Intermediate lost voice Verified 08/05/25 09:02 oxycodone AdvReac Intermediate "LOOPY" Verified 08/05/25 09:02 Zambbui-LHY-MsD Reductase AdvReac Intermediate Muscle Pain Verified 08/05/25 09:02 Inhibitor [Dtkweet-Coa-Wsu Reductase Inhibitor] Sulfa (Sulfonamide AdvReac Intermediate STOMACH Verified 08/05/25 09:02 Antibiotics) UPSET ragweed pollen AdvReac Mild Congested Verified 08/05/25 09:02 warfarin [From Coumadin] AdvReac Mild UPSET Verified 08/05/25 09:02 STOMACH Procedures Performed Operation Date: 08/05/25 10:40 Actual Procedures p Left Total Hip Arthroplasty(Left) - Quang Burdick MD Hospital Course (1) S/P total left hip arthroplasty: POD1 s/p total hip arthroplasty WBAT with walker, posterior hip precautions, abduction pillow x 8 weeks PT/OT Diet - advance as tolerated Frequently ice DVT prophylaxis: ASA 81mg BID x 6 weeks, TEDS x 2 weeks Pain control: Tylenol 1000mg q 8hrs, Celebrex 200mg BID x 2 weeks, Tramadol 50- 100mg q4-6 hrs for severe pain Dressing: Silverlon in place, can remain on until 2 week follow up. Home nursing may reinforce as needed or she is aware to contact our office with any questions or concerns Recommend stool softener, Colace sent to pharmacy Discharge home with home health when cleared by PT Follow up as scheduled with [facility] in 2 weeks Plan Pt deemed medically stable and ready for discharge once cleared by PT/OT. Total Time Total Time Spent Total Time Spent (In Minutes): 45 minutes Discharge Plan Discharge Items Patient Disposition: Home - Home Health Services Reason For Visit: Left Hip Osteoarthritis Discharge Diagnosis: s/p left total hip arthroplasty Activity: As commented below Lifting: None Bathing: Keep incision dry Bathing Comment: May shower tomorrow Sexual Activity: Wait until after follow-up appointment Exercise/Sports: Wait until after follow-up appointment Driving/Machine Use: No driving until cleared by virtual reality specialist Weightbearing: Left weightbearing Weightbearing Comment: as tolerated with walker Non-emergency contact: Surgeon Call non-emergency contact if: you have any medication questions, your pain is not controlled, your temperature is above 101.5 and your wound has increased drainage Follow-up/Referrals: Tiarra Chaney DO [Primary Care Provider] - Inga Elizabeth PA-C [Physician Medical Billing Instructor] - 08/18/25 7:45 am Diet: Regular Addtl Attending Provider Instructions: Post-operative Instructions Dear Patient and Family/Friends, Before you are discharged from the hospital, it is important to know what to expect when you get home after surgery. To that end, we have created this sheet of discharge instructions which covers many commonly asked questions. Make sure you go through this sheet in its entirety with your nurse before you are discharged. Please note that we will go over the specifics of your surgery and recovery when you return for your first post-operative visit. Sincerely, Dr. Burdick Medications Tramadol 50-100mg every 4-6 hours as needed Tylenol 1000mg every 8 hours Celebrex 200mg twice a day with food for 2 weeks Aspirin 81mg twice a day with food for 6 weeks Pain Expect to be in a fair amount of pain after surgery. Remember, our goal is not to eliminate your pain, but to make it tolerable. It is a good idea to stay ahead of your pain by taking the medications you were prescribed once you get home. Typically, the pain starts improving 3-7 days after surgery. You should start weaning off the narcotic pain medication as soon as your pain improves. Please call our office if your pain is not adequately controlled. Ice Ice your operative site at least 5 times a day for 15-30 minutes at a time. Make sure you have a thin cloth between the ice or cooling unit and your skin to prevent castro bite. This is especially important if you received a nerve block. Continue icing your operative site for the first 5-7 days after surgery, then as needed. Diet/Nausea/Vomiting Start by drinking clear liquids and eating crackers. If you can tolerate this, then you may resume your normal diet. If you feel nauseated or vomit, take Zofran/ondansetron (if prescribed). Please call our office if you have intractable nausea or vomiting, or, if after hours, you may go to the Emergency Room for help. Constipation Constipation is a common side effect of narcotic pain medication. If you have not had a bowel movement within 2 days after surgery, we recommend purchasing an over the counter laxative such as Milk of Magnesia, Dulcolax, or Miralax from a local pharmacy, and taking it as instructed. Call our clinic if any questions. Nerve block The anesthesia team sometimes places a nerve block to help with post-operative pain control. This results in significant numbness and inability to move the extremity. The nerve block usually wears off in 8-12 hours, but sometimes can last up to 24 hours. Please call our office if you are still unable to move your extremity after 24 hours, unless you received a pain pump to take home. Nerve blocks typically wear off quickly, so start taking pain medication as soon as you start feeling soreness near your surgical site. Weight bearing and Range of Motion. Weight bearing as tolerated with walker. Maintain posterior hip precautions. Abduction pillow for 8 weeks while sleeping or in bed. Physical therapy Begin PT as instructed by your therapist. Maintain posterior hip precautions. Wound care and showering You were given a water-proof dressing that is removed 14 days after surgery. It is normal to see some dried blood on the dressing. Do not remove your dressing, paper strips or sutures yourself unless you are given permission. Showering is allowed the day after surgery. Do not scrub or remove any dressings. The wound should not be submerged underwater (i.e. in a bathtub or pool) until 4 weeks after surgery TIM stockings If you were given white stockings, these are to be worn at all times except to shower (on both legs) for the first 2 weeks after surgery. Driving You may not drive while taking narcotic pain medication or while in a cast, splint, sling or brace. You, the patient, need to make the final determination about when you are safe to drive, however, the earliest you may consider driving after surgery is below: Hip,/Knee/Ankle Surgery: 4 weeks Travel Avoid long distance travel (greater than 1 hour) in airplanes and cars for the first 6 weeks after surgery. If you must travel, you need to have a Doppler ultrasound done before you travel to rule out a blood clot in your legs. Follow-up You should have a follow-up appointment already scheduled 1-2 days after surgery. If not, please contact our office to make this appointment before you leave the hospital. When to call the office It is normal to have swelling and bruising in the limb that was operated on. This will improve with time. It is also normal to have fevers for the first 2 days after surgery. Reasons you should call your doctor include: Uncontrolled pain; Nausea, vomiting, or constipation that does not improve with medication; Fevers over 101.5, chills, sweats; Drainage or bleeding from the wound; Foul odor; Spreading areas of redness; Any other concerns. Contact Information Please call Dr. Burdick's office at [phone] with any concerns. Pending Studies at Discharge: No Stand-Alone Forms: My [facility] Medications and DC Order Prescriptions: New docusate sodium 100 mg Capsule 100 mg PO BID Qty: 20 0RF celecoxib [Celebrex] 200 mg capsule 200 mg PO BID Qty: 28 0RF tramadol 50 mg tablet 50 mg PO Q4H Qty: 24 0RF Rx Instructions: 1-2 tabs every 4-6 hours as needed Max 6 tabs/day Continued mometasone 50 mcg/actuation spray,non-aerosol 2 spray intranasal DAILY PRN (Reason: Congestion) Qty: 17 8RF Rx Instructions: administer into each nostril compound cream cream 1 applic topical UD PRN (Reason: feet) Rx Instructions: Meloxicam 0.5 % doxepin 3 % amantadine 3% dextromethorphan 2% lidocaine 2% pantoprazole 40 mg tablet,delayed release (DR/EC) 40 mg PO BID PRN (Reason: GERD) vitamin E mixed 200 unit tablet 200 unit PO HS omega-3 fatty acids 1,000 mg capsule 1,000 mg PO HS lactase [Lactaid] 3,000 unit tablet 3,000 unit PO QID PRN (Reason: Lactose Intolerance) Rx Instructions: administer with meals and/or snacks pseudoephedrine HCl 30 mg tablet 30 mg PO Q6H PRN (Reason: Congestion) metoprolol succinate 50 mg Tablet Extended Release 24 Hr 50 mg PO HS levothyroxine [Synthroid] 50 mcg Tablet 50 mcg PO QAM candesartan [Atacand] 32 mg Tablet 32 mg PO HS amlodipine 2.5 mg tablet 2.5 mg PO HS fexofenadine [Jean Marie] 180 mg Tablet 180 mg PO UD Patient Comments: alternates between jean marie and zyrtec daily hydrochlorothiazide 12.5 mg tablet 12.5 mg PO Q2D Rx Instructions: mon/sat/fri only cetirizine 10 mg Tablet 10 mg PO UD Patient Comments: alternates between jean marie and zyrtec daily metoprolol succinate 100 mg tablet extended release 24 hr 100 mg PO HS Repatha SureClick 140 mg/mL pen injector 140 mg SUBCUT Q14D Changed aspirin 81 mg Tablet,Delayed Release (Dr/Ec) 81 mg PO BID 42 Days Qty: 0 0RF Discontinued celecoxib 200 mg capsule 200 mg PO DAILY PRN (Reason: Pain) Discharge Orders: Discharge Order (Routine); Ordered 08/06/25 Ordered By: Inga Elizabeth Admission Data Admit Date/Time: 08/05/25 12:28 Attending Provider: Quang Burdick Admit Provider: Quang Burdick Primary Care Provider: Tiarra Chaney Other Providers: [facility]
[2025-08-06 10:41] LABS: Hematocrit (blood only) 34.9 % (37.0-47.0); Hemoglobin 11.3 g/dl (12.0-16.0); Immature Granulocytes # (auto) 0.03 K/uL (0.01-0.20); Immature Granulocytes % (auto) 0.3 %; Mean Corpuscular Hemoglobin 28.7 pg (25.0-34.0); Mean Corpuscular Volume 88.6 fL (80.0-100.0); Platelet Count 200 K/uL (130-400); RDW Standard Deviation 41.9 fL (36.4-46.3); Red Blood Count 3.94 M/uL (4.20-5.40); White Blood Count 9.15 K/ul (4.8-10.8)
[2025-08-06 10:55] LABS: Anion Gap 9.0 (3-11); Blood Urea Nitrogen 42.0 mg/dl (6-23); Calcium 8.7 mg/dl (8.6-10.3); Carbon Dioxide 25.0 mmol/L (21-32); Chloride 99.0 mmol/L (98-107); Creatinine Clr Calc Pharmacy 27.5 ml/min; Glucose 111.0 mg/dl (70-99(Fasting)); Potassium 4.4 mmol/L (3.5-5.1); Sodium 133.0 mmol/L (136-145)
[2025-08-06 11:04] VITALS: PULSE 67
[2025-08-08] MEDS ORDERED: Scopolamine REMOVE TRANSDERM PATCH ONE (08:00)
== END 2025-08-06 12:01 | disposition home health service (06) | DRG 470 ==
LOC: ASU 08:40 → INTOOBSV 12:28 → 3N 12:28